=== PATIENT | female | born 1975 | race Caucasian/White ===

== ENCOUNTER → 2016-12-14 | Outpatient (CLI) | payer OTHER ==
--- NOTE | 2016-12-14 12:28 | REP ---
BILATERAL MAMMOGRAM: Bilateral mammography performed in the MLO and CC projections. There is a family history of breast cancer in paternal grandmother. Breast parenchyma is dense bilaterally limiting the sensitivity of the mammogram. Questionable spiculated nodule is seen in the right breast only on the CC view approximately 6 mm in diameter. This could be artifactual. I see no other evidence of mass or clustered microcalcifications. IMPRESSION: ACR 0 incomplete. Questionable small spiculated nodule medially on the right CC view not seen on the MLO view. Recommend spot compression view right breast in the CC projection, as well as right ML view. Other views and ultrasound may also be necessary. BI-RADS/ACR category 0 mammogram, incomplete. Additional imaging and/or prior images are needed before a final assessment can be assigned. This mammogram was interpreted with the aid of an FDA-approved computer-aided detection system. The patient states she/he had a clinical breast exam in 11/2016. The patient letter being requested is M0.
== END ==
LOC: M WHC 11:17
PROVIDERS: ATTEND Nurse Practitioner Women's Health
DX: Z12.31 Encounter for screening mammogram for malignant neoplasm of breast (principal); R92.8 Other abnormal and inconclusive findings on diagnostic imaging of breast

== ENCOUNTER → 2016-12-14 | Outpatient (REF) | payer OTHER | LOC: M SFHCWAGY 11:39 | PROVIDERS: ATTEND Nurse Practitioner Women's Health | DX: Z12.4 Encounter for screening for malignant neoplasm of cervix (principal) ==

== ENCOUNTER → 2016-12-17 | Outpatient (CLI) | payer OTHER ==
--- NOTE | 2016-12-18 04:43 | REP ---
Clinical: Pelvic pain. Technique: Transabdominal pelvic ultrasound followed by transvaginal examination for better evaluation of the endometrium and adnexa. Findings: Bladder is unremarkable and measures 9.1 x 5.3 x 4.5 cm . Heterogeneous anteverted uterus measures 9.7 x 4.2 x 5.2 cm. The endometrial complex measures 9.1 mm thickness. No discrete uterine or endometrial abnormalities are appreciated. Bilateral ovaries are normal in appearance. Right ovary measures 4.2 x 1.8 x 3.0 cm with 2.1 cm cyst. Left ovary measures 3.0 x 1.2 x 1.8 cm. No pelvic fluid or adnexal mass lesion . Impression: 1. Mildly enlarged heterogeneous uterus without discrete abnormality identified. 2. 2.1 cm right ovarian cyst likely physiologic. Signed by Sagar Burks MD 12/18/2016 04:35 A
== END ==
LOC: M WHC 10:03
PROVIDERS: ATTEND Nurse Practitioner Women's Health
DX: R10.2 Pelvic and perineal pain (principal); N85.2 Hypertrophy of uterus; N83.201 Unspecified ovarian cyst, right side

== ENCOUNTER → 2016-12-18 | Outpatient (CLI) | payer OTHER ==
--- NOTE | 2016-12-18 16:45 | REP ---
Right breast ultrasound: 12/18/2016. Clinical history: Nodular tissue asymmetry on the right mammogram, CC view only, inner half of that breast. Comparison: Diagnostic right mammogram today and digital screening mammogram 12/14/2016, 12/01/2015. Findings: Sonographic evaluation of the right breast shows heterogeneous dense echogenic fibrocystic tissue within a band. There are too small cystic areas within that band. One is about 3 cm from the nipple measuring 6.5 x 3.7 mm. The other at the 1-o'clock position is about 7.4 mm in greatest diameter. No discrete solid mass, architectural distortion or dilated duct. Impression: 1. Dense heterogeneous fibrocystic band tissue inner half of the right breast with two cysts within, one at 7.4 mm, the other 6.5 mm in greatest diameter within the inner half of the breast between 1-o'clock and 3-o'clock. Please see mammogram report this date for final assessment and recommendation. BIRADS/ACR category 2, benign. Signed by eRyes Villanueva MD 12/18/2016 07:09 P
--- NOTE | 2016-12-18 16:47 | REP ---
DIAGNOSTIC DIGITAL RIGHT MAMMOGRAM: 12/18/2016. Clinical history: Nodular tissue asymmetry on a screening mammogram, CC view only, right breast inner half. Spot magnified CC, MLO and true ML images of the right breast with attention in the inner half showed that the nodular area of tissue asymmetry compresses to a much less notable appearance on the CC view and is not visible on the spot magnified MLO or ML view. The breast ultrasound in this region show heterogeneous dense echogenic band of fibrocystic tissue and there were two cystic areas within it one 7.4 mm the other 6.5 mm. Impression: BIRADS ACR category 2, benign. Benign findings. No evidence of malignancy. Area in question compresses to normal-appearing parenchyma and two small cysts are seen in the dense heterogeneous breast parenchyma inner half of the right breast by ultrasound. Recommend followup mammography 1 year. This mammogram was interpreted with the aid of an FDA-approved computer-aided detection system. The patient states she/he has not had a clinical breast exam 11/2016. The patient letter being requested is M2. (Dense). BI-RADS/ACR category 2 mammogram. Benign finding(s). Routine annual screening mammography (for women over age 40). Signed by Reyes Villanueva MD 12/18/2016 07:10 P
== END ==
LOC: M RAD 14:29
PROVIDERS: ATTEND Nurse Practitioner Women's Health
DX: R91.1 Solitary pulmonary nodule (principal)

== ENCOUNTER → 2018-03-06 | Outpatient (CLI) | payer OTHER | LOC: M WHC 13:43 | DX: R92.0 Mammographic microcalcification found on diagnostic imaging of breast (principal); R92.2 Inconclusive mammogram; Z80.3 Family history of malignant neoplasm of breast | CPT/HCPCS: 77067 ==

== ENCOUNTER → 2018-03-10 | Outpatient (CLI) | payer OTHER | LOC: M RAD 06:38 | DX: R92.0 Mammographic microcalcification found on diagnostic imaging of breast (principal) | CPT/HCPCS: 77065 ==

== ENCOUNTER → 2018-04-14 | Outpatient (CLI) | payer OTHER | LOC: M WHC 09:44 | DX: Z85.3 Personal history of malignant neoplasm of breast (principal); Z15.09 Genetic susceptibility to other malignant neoplasm; Z15.01 Genetic susceptibility to malignant neoplasm of breast | CPT/HCPCS: 76830 ==

== ENCOUNTER → 2018-04-14 | Outpatient (REF) | payer OTHER ==
[2018-04-15 10:09] LABS: CA 125 23.5 U/ML (<30.2)
== END ==
LOC: M SFHCWAGY 10:17
DX: Z85.3 Personal history of malignant neoplasm of breast (principal); Z15.09 Genetic susceptibility to other malignant neoplasm; Z15.01 Genetic susceptibility to malignant neoplasm of breast

== ENCOUNTER → 2018-05-12 | Outpatient (CLI) | payer OTHER ==
[2018-05-12 10:04] LABS: HEMATOCRIT 38.8 % (36.0-47.0); HEMOGLOBIN 13.1 g/dl (12.0-15.5); MEAN CORPUSCULAR HEMOGLOBIN 28.9 pg (27.0-33.0); MEAN CORPUSCULAR HGB CONC 33.8 g/dl (32.0-36.5); MEAN CORPUSCULAR VOLUME 85.5 fl (80.0-96.0); PLATELET COUNT, AUTOMATED 150 10^3/uL (150-450); RED BLOOD COUNT 4.54 10^6/uL (4.00-5.40); WHITE BLOOD COUNT 17.3 10^3/uL (4.0-10.0)
[2018-05-12 10:29] LABS: ALBUMIN 3.4 GM/DL (3.2-5.2); ALT/SGPT 20 U/L (12-78); BILIRUBIN,TOTAL 0.2 MG/DL (0.2-1.0); BLOOD UREA NITROGEN 14 MG/DL (7-18); CALCIUM LEVEL 8.1 MG/DL (8.5-10.1); CARBON DIOXIDE LEVEL 29 MEQ/L (21-32); CHLORIDE LEVEL 108 MEQ/L (98-107); CREATININE FOR GFR 0.85 MG/DL (0.55-1.30); GLOMERULAR FILTRATION RATE > 60.0 (>58); GLUCOSE, FASTING 97 MG/DL (70-100); POTASSIUM SERUM 4.2 MEQ/L (3.5-5.1); SODIUM LEVEL 145 MEQ/L (136-145); TOTAL PROTEIN 6.3 GM/DL (6.4-8.2)
[2018-05-12 10:38] LABS: ATYPICAL LYMPH 5 % (0-5); BASOPHILS 1 % (0-4); LYMPHOCYTES 7 % (16-52); METAMYELOCYTES 2 % (0-0); MONOCYTES 9 % (0-8); NEUTROPHILS 67 % (35-75)
[2018-05-12 10:39] LABS: PLATELET ESTIMATE NORMAL (NORMAL)
[2018-05-12 10:40] LABS: ANISOCYTOSIS 1+
== END ==
LOC: M LAB 09:36
PROVIDERS: ATTEND Nurse Practitioner
DX: C50.411 Malignant neoplasm of upper-outer quadrant of right female breast (principal)

== ENCOUNTER → 2018-05-27 | Outpatient (CLI) | payer OTHER ==
[2018-05-27 12:28] LABS: HEMATOCRIT 34.5 % (36.0-47.0); HEMOGLOBIN 11.7 g/dl (12.0-15.5); MEAN CORPUSCULAR HGB CONC 33.9 g/dl (32.0-36.5); MEAN CORPUSCULAR VOLUME 85.6 fl (80.0-96.0); PLATELET COUNT, AUTOMATED 169 10^3/uL (150-450); RED BLOOD COUNT 4.03 10^6/uL (4.00-5.40); WHITE BLOOD COUNT 18.8 10^3/uL (4.0-10.0)
[2018-05-27 13:03] LABS: ALBUMIN 3.7 GM/DL (3.2-5.2); ALT/SGPT 18 U/L (12-78); BILIRUBIN,TOTAL 0.5 MG/DL (0.2-1.0); BLOOD UREA NITROGEN 18 MG/DL (7-18); CALCIUM LEVEL 8.9 MG/DL (8.5-10.1); CARBON DIOXIDE LEVEL 31 MEQ/L (21-32); CHLORIDE LEVEL 105 MEQ/L (98-107); CREATININE FOR GFR 0.73 MG/DL (0.55-1.30); GLOMERULAR FILTRATION RATE > 60.0 (>58); GLUCOSE, FASTING 88 MG/DL (70-100); POTASSIUM SERUM 3.7 MEQ/L (3.5-5.1); SODIUM LEVEL 142 MEQ/L (136-145); TOTAL PROTEIN 6.8 GM/DL (6.4-8.2)
[2018-05-27 13:38] LABS: ATYPICAL LYMPH 1 % (0-5); LYMPHOCYTES 9 % (16-52); METAMYELOCYTES 9 % (0-0); MONOCYTES 1 % (0-8); MYELOCYTES 2 % (0-0); NEUTROPHILS 57 % (35-75)
[2018-05-27 13:39] LABS: ANISOCYTOSIS 1+; OVALOCYTES 1+; PLATELET ESTIMATE NORMAL (NORMAL); POIKILOCYTOSIS 1+; POLYCHROMASIA 1+
== END ==
LOC: M LAB 12:06
PROVIDERS: ATTEND Nurse Practitioner
DX: C50.411 Malignant neoplasm of upper-outer quadrant of right female breast (principal)

== ENCOUNTER → 2018-06-09 | Outpatient (CLI) | payer OTHER ==
[2018-06-09 11:55] LABS: HEMATOCRIT 32.8 % (36.0-47.0); HEMOGLOBIN 10.9 g/dl (12.0-15.5); MEAN CORPUSCULAR HEMOGLOBIN 28.9 pg (27.0-33.0); MEAN CORPUSCULAR HGB CONC 33.2 g/dl (32.0-36.5); PLATELET COUNT, AUTOMATED 162 10^3/uL (150-450); RED BLOOD COUNT 3.77 10^6/uL (4.00-5.40); WHITE BLOOD COUNT 10.5 10^3/uL (4.0-10.0)
[2018-06-09 12:17] LABS: ATYPICAL LYMPH 1 % (0-5); BASOPHILS 1 % (0-4); LYMPHOCYTES 8 % (16-52); METAMYELOCYTES 6 % (0-0); MONOCYTES 9 % (0-8); MYELOCYTES 4 % (0-0); NEUTROPHILS 69 % (35-75); PLATELET ESTIMATE NORMAL (NORMAL)
[2018-06-09 12:18] LABS: ANISOCYTOSIS 1+; POLYCHROMASIA 1+
[2018-06-09 12:24] LABS: ALBUMIN 3.6 GM/DL (3.2-5.2); ALT/SGPT 19 U/L (12-78); BILIRUBIN,TOTAL 0.2 MG/DL (0.2-1.0); BLOOD UREA NITROGEN 12 MG/DL (7-18); CALCIUM LEVEL 8.6 MG/DL (8.5-10.1); CARBON DIOXIDE LEVEL 30 MEQ/L (21-32); CHLORIDE LEVEL 107 MEQ/L (98-107); CREATININE FOR GFR 0.71 MG/DL (0.55-1.30); GLOMERULAR FILTRATION RATE > 60.0 (>58); GLUCOSE, FASTING 86 MG/DL (70-100); SODIUM LEVEL 140 MEQ/L (136-145); TOTAL PROTEIN 6.4 GM/DL (6.4-8.2)
== END ==
LOC: M LAB 11:24
PROVIDERS: ATTEND Nurse Practitioner
DX: C50.411 Malignant neoplasm of upper-outer quadrant of right female breast (principal)

== ENCOUNTER → 2018-06-26 | Outpatient (CLI) | payer OTHER ==
[2018-06-26 15:12] LABS: HEMATOCRIT 31.6 % (36.0-47.0); HEMOGLOBIN 10.7 g/dl (12.0-15.5); MEAN CORPUSCULAR HEMOGLOBIN 29.7 pg (27.0-33.0); MEAN CORPUSCULAR HGB CONC 33.9 g/dl (32.0-36.5); MEAN CORPUSCULAR VOLUME 87.8 fl (80.0-96.0); PLATELET COUNT, AUTOMATED 180 10^3/uL (150-450); WHITE BLOOD COUNT 7.3 10^3/uL (4.0-10.0)
[2018-06-26 15:36] LABS: ALBUMIN 3.8 GM/DL (3.2-5.2); ALT/SGPT 20 U/L (12-78); BILIRUBIN,TOTAL 0.4 MG/DL (0.2-1.0); BLOOD UREA NITROGEN 17 MG/DL (7-18); CALCIUM LEVEL 8.7 MG/DL (8.5-10.1); CARBON DIOXIDE LEVEL 30 MEQ/L (21-32); CHLORIDE LEVEL 104 MEQ/L (98-107); GLOMERULAR FILTRATION RATE > 60.0 (>58); GLUCOSE, FASTING 94 MG/DL (70-100); POTASSIUM SERUM 4.2 MEQ/L (3.5-5.1); SODIUM LEVEL 138 MEQ/L (136-145); TOTAL PROTEIN 6.8 GM/DL (6.4-8.2)
[2018-06-26 15:57] LABS: BASOPHILS 1 % (0-4); EOSINOPHILS 1 % (0-5); LYMPHOCYTES 7 % (16-52); METAMYELOCYTES 6 % (0-0); MONOCYTES 6 % (0-8); MYELOCYTES 9 % (0-0); NEUTROPHILS 61 % (35-75)
[2018-06-26 16:02] LABS: PLATELET ESTIMATE NORMAL (NORMAL)
== END ==
LOC: M LAB 14:35
PROVIDERS: ATTEND Nurse Practitioner
DX: C50.411 Malignant neoplasm of upper-outer quadrant of right female breast (principal)

== ENCOUNTER → 2018-07-11 | Outpatient (CLI) | payer OTHER ==
[2018-07-11 12:58] LABS: HEMATOCRIT 35.4 % (36.0-47.0); HEMOGLOBIN 11.8 g/dl (12.0-15.5); MEAN CORPUSCULAR HEMOGLOBIN 30.5 pg (27.0-33.0); MEAN CORPUSCULAR HGB CONC 33.3 g/dl (32.0-36.5); MEAN CORPUSCULAR VOLUME 91.5 fl (80.0-96.0); PLATELET COUNT, AUTOMATED 149 10^3/uL (150-450); RED BLOOD COUNT 3.87 10^6/uL (4.00-5.40); WHITE BLOOD COUNT 9.1 10^3/uL (4.0-10.0)
[2018-07-11 13:16] LABS: ALBUMIN 3.8 GM/DL (3.2-5.2); ALT/SGPT 43 U/L (12-78); BILIRUBIN,TOTAL 0.5 MG/DL (0.2-1.0); BLOOD UREA NITROGEN 17 MG/DL (7-18); CALCIUM LEVEL 8.5 MG/DL (8.5-10.1); CARBON DIOXIDE LEVEL 29 MEQ/L (21-32); CHLORIDE LEVEL 106 MEQ/L (98-107); CREATININE FOR GFR 0.72 MG/DL (0.55-1.30); GLOMERULAR FILTRATION RATE > 60.0 (>58); GLUCOSE, FASTING 79 MG/DL (70-100); POTASSIUM SERUM 4.2 MEQ/L (3.5-5.1); SODIUM LEVEL 141 MEQ/L (136-145); TOTAL PROTEIN 6.7 GM/DL (6.4-8.2)
[2018-07-11 13:37] LABS: EOSINOPHILS 2 % (0-5); LYMPHOCYTES 7 % (16-52); MONOCYTES 5 % (0-8); NEUTROPHILS 86 % (35-75)
[2018-07-11 13:38] LABS: PLATELET ESTIMATE NORMAL (NORMAL)
== END ==
LOC: M LAB 12:09
PROVIDERS: ATTEND Nurse Practitioner
DX: C50.411 Malignant neoplasm of upper-outer quadrant of right female breast (principal)

== ENCOUNTER → 2018-07-24 | Outpatient (CLI) | payer OTHER ==
[2018-07-24 11:26] LABS: HEMATOCRIT 34.9 % (36.0-47.0); HEMOGLOBIN 11.1 g/dl (12.0-15.5); MEAN CORPUSCULAR HGB CONC 31.8 g/dl (32.0-36.5); MEAN CORPUSCULAR VOLUME 94.3 fl (80.0-96.0); PLATELET COUNT, AUTOMATED 166 10^3/uL (150-450); WHITE BLOOD COUNT 16.2 10^3/uL (4.0-10.0)
[2018-07-24 11:49] LABS: BASOPHILS 2 % (0-4); EOSINOPHILS 2 % (0-5); LYMPHOCYTES 7 % (16-52); MONOCYTES 2 % (0-8); NEUTROPHILS 87 % (35-75); PLATELET ESTIMATE NORMAL (NORMAL)
[2018-07-24 11:56] LABS: ALBUMIN 3.7 GM/DL (3.2-5.2); ALT/SGPT 89 U/L (12-78); BILIRUBIN,TOTAL 0.3 MG/DL (0.2-1.0); BLOOD UREA NITROGEN 21 MG/DL (7-18); CALCIUM LEVEL 8.4 MG/DL (8.5-10.1); CARBON DIOXIDE LEVEL 30 MEQ/L (21-32); CHLORIDE LEVEL 106 MEQ/L (98-107); CREATININE FOR GFR 0.74 MG/DL (0.55-1.30); GLOMERULAR FILTRATION RATE > 60.0 (>58); GLUCOSE, FASTING 74 MG/DL (70-100); POTASSIUM SERUM 4.3 MEQ/L (3.5-5.1); SODIUM LEVEL 142 MEQ/L (136-145); TOTAL PROTEIN 6.7 GM/DL (6.4-8.2)
== END ==
LOC: M LAB 10:47
PROVIDERS: ATTEND Internal Medicine Hematology & Oncology
DX: C50.411 Malignant neoplasm of upper-outer quadrant of right female breast (principal)

== ENCOUNTER → 2019-03-10 | Outpatient (REF) | payer OTHER ==
[2019-03-12 14:10] LABS: HPV HYBRID CAPTURE II Negative (Negative)
== END ==
LOC: M SFHCWAGY 14:01
PROVIDERS: ATTEND Nurse Practitioner Women's Health
DX: Z12.4 Encounter for screening for malignant neoplasm of cervix (principal)

== ENCOUNTER 2020-06-17 09:32 | Emergency (ER) | payer OTHER ==
[~2020-06-17] VITALS: Ht 157.5 cm; Wt 74.8 kg
[2020-06-17 09:33] VITALS: BP 128/73
--- OUTSIDE RECORDS SUMMARY | 2020-06-17 09:40 | CCD ---
Author Author [facility] Organization [facility] Address Unknown Phone Unavailable Care Team Providers Care Transplanter Name Role Phone ChikisElizabeth pachecodith Unavailable PROBLEMS Type Condition ICD9-CM Code CWZ30-QT Code Onset Dates Condition S tatus SNOMED Code Notes Problem Unspecified hypothyroidism 244.9 Active 57859 008 Problem Depressive disorder, not elsewhere classified 311 Active 36372236 Problem Peeling skin R23.4 Active 144213358 Problem Constipation, unspecified constipation type K59.00 Active 89948542 Problem Bloating R14.0 Active 650176129 Problem Vitamin D deficiency disease E55.9 Active 347 76584 Problem Numerous skin moles D22.9 Active 762528195 Problem Yeast vaginitis B37.3 Active 78702457 Problem Periodic heart flutter I49.8 Active 959589866 Problem Hypothyroidism, unspecified E03.9 Active 4093 0008 Problem Obesity E66.9 Active 059860536 Problem Major depressive disorder, single episode, unspecified F32.9 Active 23156308 Problem Malignant neoplasm of centra l portion of right female breast, unspecified estrogen receptor status C50.111 Active 926485751 ALLERGIES Allergen (clinical drug ingredient) Drug/Non Drug Allergy do cumented on EMR Reaction Allergy Type Onset Date Status Sulfacet-R n and v Drug Allergy Active Steri-Strip([facility] Code:[address]-56) blisters Drug Allerg y Active ENCOUNTERS from 1975 to 2020-05-03 Encounter Location Date Provider Diagnosis [address] [address] Apr, Monica Diop Hypothyroidism, unspecified E03.9 ; Encounter for screening for lipoid disorders Z13.220 ; Vitamin D deficiency disease E55.9 and Elevated blood pressure reading R03.0 IMMUNIZATIONS Vaccine Route Administration Date Status Tdap IM Intramuscular Jan 10, 2015 Administered SOCIAL HISTORY Tobacco Use: Social History Observation Description Date Details (start date - stop date) Never Smoker Sex Assigned At : Social History Observation Description Sex Assigned At Unknown Alcohol Screen Question Answer Notes Did you have a drink containing alcohol in the past year? No Points 0 Interpretation Negative Tobacco Use/Smoking Question Answer Notes Are you a never smoker REASON FOR REFERRAL No Information VITAL SIGNS No information MEDICATIONS Medication SIG (Take, Route, Frequency, Duration) Notes Start Da te End Date Status Lexapro 10 MG 1 tablet Orally Once a day for 90 days Not-Taking Synthroid 75 MCG 1 tablet on an empty stomach in the morning Orally Once a day for 90 days Aug, Active Vitamin D3 75817 UNIT 1 tablet Orally Once a week for 90 days Jul, Active PROCEDURES No Information RESULTS No Results REASON FOR VISIT Med Refill MEDICAL (GENERAL) HISTORY Type Description Date Medical History Hypothyroidism Medical History Anxiety Surgical History C-secton x 3 Surgical History Left knee ACL reconstruction Surgical History Left knee arthroscopy x 2 Surgical History Diag Lap 07/30 Surgical History Colonoscopy-normal 12/30 Surgical History Left IHR as baby Surgical History left knee scope 10/10/17 Surgical History Breast Biopsy - right 2017 Surgical History Port surgery (port placement ) - done in [place]. Taking out Sep 22 2018 05/01/2018 Surgical History double mastectomy 09/22/18 Hospitalization History C -section Hospitalization History ACL reconstruction Goals Section No Information Health Concerns No Information MEDICAL EQUIPMENT No Information MENTAL STATUS No Information FUNCTIONAL STATUS No Information ASSESSMENTS Encounter Date Diagnosis Assessment Notes Treatment Notes Treatm ent Clinical Notes Apr, Hypothyroidism, unspecified (ICD-10 - E03.9) Apr, Encounter for screening for lipoid disorders (IC D-10 - Z13.220) Apr, Vitamin D deficiency disease (ICD-10 - E55.9) Apr, Elevated blood pressure reading (ICD-10 - R03.0) PLAN OF TREATMENT Medication Medication Name Sig Start Date Stop Date Synthroid 75 MCG 1 tablet on an empty stomach in the morning Orally Once a day for 90 days Aug, Vitamin D3 95083 UNIT 1 tablet Orally Once a week for 90 days Jul, Treatment Notes Test Name Order Date CMP 2020-05-03 TSH 2020-05-03 MAGNESIUM 2020-05-03 VITAMIN D 25OH 2020-05-03 LIPID PROFILE 2020-05-03 FREE T4 2020-05-03 CBC W/DIFF 2020-05-03 Next Appt Details Provider Name:Monica Diop, 07:20:00 AM, [address] [place] [address], [phone], Insurance Providers Payer Name Payer Address Payer Phone Insured Name Patient Relati onship to Insured Coverage Start Date Coverage End Date [facility] [address] [address] [facility] [id number] [phone] Stacy Mcfadden self
--- OUTSIDE RECORDS SUMMARY | 2020-06-17 09:40 | CCD ---
Author Author [facility] Organization [facility] Address Unknown Phone Unavailable Care Team Providers Care Cable Television Line Technician Name Role Phone Cal Mak Unavailable PROBLEMS Type Condition ICD9-CM Code QQV70-RW Code Onset Dates Condition S tatus SNOMED Code Notes Problem Unspecified hypothyroidism 244.9 Active 83779 008 Problem Depressive disorder, not elsewhere classified 311 Active 66746790 Problem Peeling skin R23.4 Active 045792047 Problem Constipation, unspecified constipation type K59.00 Active 21073666 Problem Bloating R14.0 Active 232056460 Problem Vitamin D deficiency disease E55.9 Active 347 06748 Problem Numerous skin moles D22.9 Active 599764716 Problem Yeast vaginitis B37.3 Active 14414886 Problem Periodic heart flutter I49.8 Active 853468875 Problem Hypothyroidism, unspecified E03.9 Active 4093 0008 Problem Obesity E66.9 Active 910009161 Problem Major depressive disorder, single episode, unspecified F32.9 Active 45504267 Problem Malignant neoplasm of centra l portion of right female breast, unspecified estrogen receptor status C50.111 Active 538080247 ALLERGIES Allergen (clinical drug ingredient) Drug/Non Drug Allergy do cumented on EMR Reaction Allergy Type Onset Date Status Sulfacet-R n and v Drug Allergy Active Steri-Strip([facility] Code:[address]-34) blisters Drug Allerg y Active ENCOUNTERS from 1975 to 2020-05-31 Encounter Location Date Provider Diagnosis [address] [address] May, Mak Mccall IMMUNIZATIONS Vaccine Route Administration Date Status Tdap [...] for 90 days Aug, Active Vitamin D3 60530 UNIT 1 tablet Orally Once a week for 90 days Jul, Active PROCEDURES No Information RESULTS No Results REASON FOR VISIT Lab Results MEDICAL (GENERAL) HISTORY Type Description Date Medical [...] surgery (port placement ) - done in [place]. Taking out Sep 22 2018 05/01/2018 Surgical History double mastectomy 09/22/18 Hospitalization History C -section Hospitalization History ACL reconstruction Goals Section No Information Health Concerns No Information MEDICAL EQUIPMENT No Information MENTAL STATUS No Information FUNCTIONAL STATUS No Information ASSESSMENTS No Information PLAN OF TREATMENT Medication Medication Name Sig Start Date Stop Date Synthroid 75 MCG 1 tablet on an empty stomach in the morning Orally Once a day for 90 days Aug, Vitamin D3 96307 UNIT 1 tablet Orally Once a week for 90 days Jul, Next Appt Details Provider Name:Monica Diop, 07:20:00 AM, [address] [place] [address], [phone], Insurance Providers Payer Name Payer Address Payer Phone Insured Name Patient Relati onship to Insured Coverage Start Date Coverage End Date [facility] [address] [address] [facility] [phone] Stacy Mcfadden
--- OUTSIDE RECORDS SUMMARY | 2020-06-17 09:41 | CCD ---
Author Author [facility] Address Unknown Phone Unavailable Care Team Providers Care Chaser Apprentice Name Role Phone Yael RUBIO MD Unavailable Unavailable Yael RUBIO MD Unavailable Unavailable Yael RUBIO MD Unavailable Unavailable Yael RUBIO MD Unavailable Unavailable Yael RUBIO MD Unavailable Unavailable Yael RUBIO MD Unavailable Unavailable Yael RUBIO MD Unavailable Unavailable Yael RUBIO MD Unavailable Unavailable Yael RUBIO MD Unavailable Unavailable Yael RUBIO MD Unavailable Unavailable Yael RUBIO MD Unavailable Unavailable Yael RUBIO MD Unavailable Unavailable RUBIOYael MD Unavailable Unavailable RUBIOYael MD Unavailable Unavailable RUBIOYael MD Unavailable Unavailable RUBIOYael MD Unavailable Unavailable RUBIOYael MD Unavailable Unavailable RUBIOYael MD Unavailable Unavailable RUBIOYael MD Unavailable Unavailable RUBIOYael MD Unavailable Unavailable RUBIOYael MD Unavailable Unavailable RUBIOYael MD Unavailable Unavailable RUBIOYael MD Unavailable Unavailable RUBIOYael MD Unavailable Unavailable RUBIOYael MD Unavailable Unavailable RUBIOYael MD Unavailable Unavailable RUBIOYael MD Unavailable Unavailable RUBIOYael MD Unavailable Unavailable RUBIOYael MD Unavailable Unavailable RUBIOYael MD Unavailable Unavailable RUBIOYael MD Unavailable Unavailable RUBIOYael PAGAN MD Unavailable Unavailable RUBIOYael PAGAN MD Unavailable Unavailable Yael RUBIO MD Unavailable Unavailable Yael RUBIO MD Unavailable Unavailable Yael RUBIO MD Unavailable Unavailable Yael RUBIO MD Unavailable Unavailable Yael RUBIO MD Unavailable Unavailable Yael RUBIO MD Unavailable Unavailable Yael RUBIO MD Unavailable Unavailable Yael RUBIO MD Unavailable Unavailable Yael RUBIO MD Unavailable Unavailable Yael RUBIO MD Unavailable Unavailable Yael RUBIO MD Unavailable Unavailable Yael RUBIO MD Unavailable Unavailable Yael RUBIO MD Unavailable Unavailable Yael RUBIO MD Unavailable Unavailable Yael RUBIO MD Unavailable Unavailable Yael RUBIO MD Unavailable Unavailable Yael RUBIO MD Unavailable Unavailable Yael RUBIO MD Unavailable Unavailable Yael RUBIO MD Unavailable Unavailable Yael RUBIO MD Unavailable Unavailable Yael RUBIO MD Unavailable Unavailable Yael RUBIO MD Unavailable Unavailable Yael RUBIO MD Unavailable Unavailable Yael RUBIO MD Unavailable Unavailable Yael RUBIO MD Unavailable Unavailable RUBIOYael PAGAN MD Unavailable Unavailable RUBIOYael PAGAN MD Unavailable Unavailable RUBIOYael PAGAN MD Unavailable Unavailable Yael RUBIO MD Unavailable Unavailable Yael RUBIO MD Unavailable Unavailable Yael RUBIO MD Unavailable Unavailable Yael RUBIO MD Unavailable Unavailable Yael RUBIO MD Unavailable Unavailable RUBIOYael MD Unavailable Unavailable Yael RUBIO MD Unavailable Unavailable Yael RUBIO MD Unavailable Unavailable Yael RUBIO MD Unavailable Unavailable Yael RUBIO MD Unavailable Unavailable Yael RUBIO MD Unavailable Unavailable Yael RUBIO MD Unavailable Unavailable Yael RUBIO MD Unavailable Unavailable Yael RUBIO MD Unavailable Unavailable Yael RUBIO MD Unavailable Unavailable Yael RUBIO MD Unavailable Unavailable Yael RUBIO MD Unavailable Unavailable Yael RUBIO MD Unavailable Unavailable Yael RUBIO MD Unavailable Unavailable Yael RUBIO MD Unavailable Unavailable Yael RUBIO MD Unavailable Unavailable Yael RUBIO MD Unavailable Unavailable Yael RUBIO MD Unavailable Unavailable Yael RUBIO MD Unavailable Unavailable Yael RUBIO MD Unavailable Unavailable Yael RUBIO MD Unavailable Unavailable Yael RUBIO MD Unavailable Unavailable Yael RUBIO MD Unavailable Unavailable Yael RUBIO MD Unavailable Unavailable Yael RUBIO MD Unavailable Unavailable Yael RUBIO MD Unavailable Unavailable Yael RUBIO MD Unavailable Unavailable Yael RUBIO MD Unavailable Unavailable Yael RUBIO MD Unavailable Unavailable Yael RUBIO MD Unavailable Unavailable Yael RUBIO MD Unavailable Unavailable Yael RUBIO MD Unavailable Unavailable Yael RUBIO MD Unavailable Unavailable Pretty William MD Unavailable Unavailable Pretty William MD Unavailable Unavailable Pretty William MD Unavailable Unavailable Pretty William MD Unavailable Unavailable Pretty William MD Unavailable Unavailable Pretty William MD Unavailable Unavailable Pretty William MD Unavailable Unavailable Pretty William MD Unavailable Unavailable Pretty William MD Unavailable Unavailable Pretty William MD Unavailable Unavailable Pretty William MD Unavailable Unavailable Pretty William MD Unavailable Unavailable Pretty William MD Unavailable Unavailable Pretty William MD Unavailable Unavailable Pretty William MD Unavailable Unavailable Pretty William MD Unavailable Unavailable Pretty William MD Unavailable Unavailable Pretty William MD Unavailable Unavailable Pretty William MD Unavailable Unavailable Pretty William MD Unavailable Unavailable Pretty William MD Unavailable Unavailable Slezka Vojtech Unavailable Unavailable Slezka Voyaeltech Unavailable Unavailable Slezka Vojtech Unavailable Unavailable SlezkaBryantech Unavailable Unavailable SlezkaJamesjtech Unavailable Unavailable SlezkaJamesjtech Unavailable Unavailable SlezkaJamesjtech Unavailable Unavailable SlezkaJamesjtech Unavailable Unavailable Slezka Vojtech Unavailable Unavailable SlezkaJamesjtech Unavailable Unavailable SlezkaJamesjtech Unavailable Unavailable SlezkaJamesjtech Unavailable Unavailable SlezkaJamesjtech Unavailable Unavailable Slezka Vojtech Unavailable Unavailable SlezkaJamesjtech Unavailable Unavailable SlezkaJamesjtech Unavailable Unavailable SlezkaJamesjtech Unavailable Unavailable SlezkaJamesjtech Unavailable Unavailable SlerahulkaJamesjtech Unavailable Unavailable SlezkaJamesjtech Unavailable Unavailable SlerahulkaJamesjtech Unavailable Unavailable SlerahulkaJamesjtech Unavailable Unavailable SleJames rochajtech Unavailable Unavailable SlerahulkaBryantech Unavailable Unavailable SlezkaJamesjtech Unavailable Unavailable SlezkaJamesjtech Unavailable Unavailable SlezkaJamesjtech Unavailable Unavailable SlezkaJamesjtech Unavailable Unavailable SlerahulkaJamesjtech Unavailable Unavailable SlezkaJamesjtech Unavailable Unavailable SlerahulkaBryantech Unavailable Unavailable SlezkaJamesjtech Unavailable Unavailable SlezkaJamesjtech Unavailable Unavailable SlezkaJamesjtech Unavailable Unavailable SleBryan rochatech Unavailable Unavailable SlerahulkaBryantech Unavailable Unavailable SleBryan rochatech Unavailable Unavailable RUIZ SR, IRMA CUELLAR MD Unavailable Unavailable URIZ SR, IRMA CUELLAR MD Unavailable Unavailable RUIZ SR, IRMA CUELLAR MD Unavailable Unavailable RUIZ SR, IRMA CUELLAR MD Unavailable Unavailable RUIZ SR, IRMA CUELLAR MD Unavailable Unavailable RUIZ SR, IRMA CUELLAR MD Unavailable Unavailable RUIZ SR, IRMA CUELLAR MD Unavailable Unavailable RUIZ SR, IRMA CUELLAR MD Unavailable Unavailable RUIZ SR, IRMA CUELLAR MD Unavailable Unavailable RUIZ SR, IRMA CUELLAR MD Unavailable Unavailable RUIZ SR, IRMA CUELLAR MD Unavailable Unavailable RUIZ SR, IRMA CUELLAR MD Unavailable Unavailable RUIZ SR, IRMA CUELLAR MD Unavailable Unavailable RUIZ SR, IRMA CUELLAR MD Unavailable Unavailable RUIZ SR, IRMA CUELLAR MD Unavailable Unavailable RUIZ SR, IRMA CUELLAR MD Unavailable Unavailable RUIZ SR, IRMA CUELLAR MD Unavailable Unavailable RUIZ SR, IRMA CUELLAR MD Unavailable Unavailable RUIZ SR, IRMA CUELLAR MD Unavailable Unavailable RUIZ SR, IRMA CUELLAR MD Unavailable Unavailable RUIZ SR, IRMA CUELLAR MD Unavailable Unavailable RIUZ SR, IRMA CUELLAR MD Unavailable Unavailable RUIZ SR, IRMA CUELLAR MD Unavailable Unavailable RUIZ SR, IRMA CUELLAR MD Unavailable Unavailable RUIZ SR, IRMA CUELLAR MD Unavailable Unavailable RUIZ SR, IRMA CUELLAR MD Unavailable Unavailable RUIZ SR, IRMA CUELLAR MD Unavailable Unavailable RUIZ SR, IRMA CUELLAR MD Unavailable Unavailable RUIZ SR, IRMA CUELLAR MD Unavailable Unavailable RUIZ SR, IRMA CUELLAR MD Unavailable Unavailable RUIZ SR, IRMA CUELLAR MD Unavailable Unavailable RUIZ SR, IRMA CUELLAR MD Unavailable Unavailable RUIZ SR, IRMA CUELLAR MD Unavailable Unavailable RUIZ SR, IRMA CUELLAR MD Unavailable Unavailable RUIZ SR, IRMA CUELLAR MD Unavailable Unavailable RUIZ SR, IRMA CUELLAR MD Unavailable Unavailable RUIZ SR, IRMA CUELLAR MD Unavailable Unavailable RUIZ SR, IRMA CUELLAR MD Unavailable Unavailable RUIZ SR, IRMA CUELLAR MD Unavailable Unavailable RUIZ SR, IRMA CUELLAR MD Unavailable Unavailable RUIZ SR, IRMA CUELLAR MD Unavailable Unavailable RUIZ SR, IRMA CUELLAR MD Unavailable Unavailable RUIZ SR, IRMA CUELLAR MD Unavailable Unavailable RUIZ SR, IRMA CUELLAR MD Unavailable Unavailable RUIZ SR, IRMA CUELLAR MD Unavailable Unavailable RUIZ SR, IRMA CUELLAR MD Unavailable Unavailable RUIZ SR, IRMA CUELLAR MD Unavailable Unavailable RUIZ SR, IRMA CUELLAR MD Unavailable Unavailable RUIZ SR, IRMA CUELLAR MD Unavailable Unavailable RUIZ SR, IRMA CUELLAR MD Unavailable Unavailable RUIZ SR, IRMA CUELLAR MD Unavailable Unavailable RUIZ SR, IRMA CUELLAR MD Unavailable Unavailable RUIZ SR, IRMA CUELLAR MD Unavailable Unavailable RUIZ SR, IRMA CUELLAR MD Unavailable Unavailable Volcko, M Asuncion ENGINEERING DRAFTER Unavailable Unavailable Volcko, M Asuncion ENGINEERING DRAFTER Unavailable Unavailable Volcko, M Asuncion ENGINEERING DRAFTER Unavailable Unavailable Volcko, M Asuncion ENGINEERING DRAFTER Unavailable Unavailable Volcko, M Asuncion ENGINEERING DRAFTER Unavailable Unavailable Volcko, M Asuncion ENGINEERING DRAFTER Unavailable Unavailable Volcko, M Asuncion ENGINEERING DRAFTER Unavailable Unavailable Volcko, M Asuncion ENGINEERING DRAFTER Unavailable Unavailable Volcko, M Asuncion ENGINEERING DRAFTER Unavailable Unavailable Volcko, M Asuncion ENGINEERING DRAFTER Unavailable Unavailable Volcko, M Asuncion ENGINEERING DRAFTER Unavailable Unavailable Volcko, M Asuncion ENGINEERING DRAFTER Unavailable Unavailable Volcko, M Asuncion ENGINEERING DRAFTER Unavailable Unavailable Volcko, M Asuncion ENGINEERING DRAFTER Unavailable Unavailable Volcko, M Asuncion ENGINEERING DRAFTER Unavailable Unavailable Volcko, M Asuncion ENGINEERING DRAFTER Unavailable Unavailable Volcko, M Asuncion ENGINEERING DRAFTER Unavailable Unavailable Volcko, M Asuncion ENGINEERING DRAFTER Unavailable Unavailable Volcko, M Asuncion ENGINEERING DRAFTER Unavailable Unavailable Volcko, M Asuncion ENGINEERING DRAFTER Unavailable Unavailable Volcko, M Asuncion ENGINEERING DRAFTER Unavailable Unavailable Volcko, M Asuncion ENGINEERING DRAFTER Unavailable Unavailable Volcko, M Asuncion ENGINEERING DRAFTER Unavailable Unavailable Volcko, M Asuncion ENGINEERING DRAFTER Unavailable Unavailable Volcko, M Asuncion ENGINEERING DRAFTER Unavailable Unavailable Volcko, M Asuncion ENGINEERING DRAFTER Unavailable Unavailable Volcko, M Asuncion ENGINEERING DRAFTER Unavailable Unavailable Volcko, M Asuncion ENGINEERING DRAFTER Unavailable Unavailable Volcko, M Asuncion ENGINEERING DRAFTER Unavailable Unavailable Volcko, M Asuncion ENGINEERING DRAFTER Unavailable Unavailable Volcko, M Asuncion ENGINEERING DRAFTER Unavailable Unavailable Volcko, M Asuncion ENGINEERING DRAFTER Unavailable Unavailable Volcko, M Asuncion ENGINEERING DRAFTER Unavailable Unavailable Volcko, M Asuncion ENGINEERING DRAFTER Unavailable Unavailable Volcko, M Asuncion ENGINEERING DRAFTER Unavailable Unavailable Volcko, M Asuncion ENGINEERING DRAFTER Unavailable Unavailable Volcko, M Asuncion ENGINEERING DRAFTER Unavailable Unavailable DWYER, KARLA PAULA ACCOUNTANT CONTROLLER-C, MSN Unavailable Unavailab le DWYERKARLA QUEZADA PAULA ACCOUNTANT CONTROLLER-C, MSN Unavailable Unavailab le DWYERKARLA PAULA ACCOUNTANT CONTROLLER-C, MSN Unavailable Unavailab le DWYERKARLA QUEZADA PAULA ACCOUNTANT CONTROLLER-C, MSN Unavailable Unavailab le DWYERKARLA QUEZADA PAULA ACCOUNTANT CONTROLLER-C, MSN Unavailable Unavailab le DWYERKARLA QUEZADA PAULA ACCOUNTANT CONTROLLER-C, MSN Unavailable Unavailab le DWYERKARLA QUEZADA PAULA ACCOUNTANT CONTROLLER-C, MSN Unavailable Unavailab le DWYERKARLA PAULA ACCOUNTANT CONTROLLER-C, MSN Unavailable Unavailab le DWYERKARLA PAULA ACCOUNTANT CONTROLLER-C, MSN Unavailable Unavailab le DWYERKARLA PAULA ACCOUNTANT CONTROLLER-C, MSN Unavailable Unavailab le DWYERKARLA PAULA ACCOUNTANT CONTROLLER-C, MSN Unavailable Unavailab le DWYERKARLA PAULA ACCOUNTANT CONTROLLER-C, MSN Unavailable Unavailab le DWYERKARLA PAULA ACCOUNTANT CONTROLLER-C, MSN Unavailable Unavailab le DWYER, KARLA PAULA ACCOUNTANT CONTROLLER-C, MSN Unavailable Unavailab le DWYER, KARLA PAULA ACCOUNTANT CONTROLLER-C, MSN Unavailable Unavailab le DWYER, KARLA PAULA ACCOUNTANT CONTROLLER-C, MSN Unavailable Unavailab le DWYER, KARLA PAULA ACCOUNTANT CONTROLLER-C, MSN Unavailable Unavailab le DWYER, KARLA PAULA ACCOUNTANT CONTROLLER-C, MSN Unavailable Unavailab le DWYER, KARLA PAULA ACCOUNTANT CONTROLLER-C, MSN Unavailable Unavailab le DWYER, KARLA PAULA ACCOUNTANT CONTROLLER-C, MSN Unavailable Unavailab le DWYER, KARLA PAULA ACCOUNTANT CONTROLLER-C, MSN Unavailable Unavailab le DWYER, KARLA PAULA ACCOUNTANT CONTROLLER-C, MSN Unavailable Unavailab le DWYER, KARLA PAULA ACCOUNTANT CONTROLLER-C, MSN Unavailable Unavailab le DWYER, KARLA PAULA ACCOUNTANT CONTROLLER-C, MSN Unavailable Unavailab le DWYER, KARLA PAULA ACCOUNTANT CONTROLLER-C, MSN Unavailable Unavailab le DWYER, KARLA PAULA ACCOUNTANT CONTROLLER-C, MSN Unavailable Unavailab le DWYER, KARLA PAULA ACCOUNTANT CONTROLLER-C, MSN Unavailable Unavailab le DWYER, KARLA PAUAL ACCOUNTANT CONTROLLER-C, MSN Unavailable Unavailab le DWYER, KARLA PAULA ACCOUNTANT CONTROLLER-C, MSN Unavailable Unavailab le DWYER, KARLA PAULA ACCOUNTANT CONTROLLER-C, MSN Unavailable Unavailab le DWYER, KARLA PAULA ACCOUNTANT CONTROLLER-C, MSN Unavailable Unavailab le DWYER, KARLA PAULA ACCOUNTANT CONTROLLER-C, MSN Unavailable Unavailab le DWYER, KARLA PAULA ACCOUNTANT CONTROLLER-C, MSN Unavailable Unavailab le DWYER, KARLA PAULA ACCOUNTANT CONTROLLER-C, MSN Unavailable Unavailab le DWYER, KARLA PAULA ACCOUNTANT CONTROLLER-C, MSN Unavailable Unavailab le DWYER, KARLA PAULA ACCOUNTANT CONTROLLER-C, MSN Unavailable Unavailab le DWYER, KARLA PAULA ACCOUNTANT CONTROLLER-C, MSN Unavailable Unavailab le DWYER, KARLA PAULA ACCOUNTANT CONTROLLER-C, MSN Unavailable Unavailab le DWYER, KARLA PAULA ACCOUNTANT CONTROLLER-C, MSN Unavailable Unavailab le DWYER, KARLA PAULA ACCOUNTANT CONTROLLER-C, MSN Unavailable Unavailab le KARLA DWYER ACCOUNTANT CONTROLLER-C, MSN Unavailable Unavailab lonnie DWYER, KARLA PEOPLESA ACCOUNTANT CONTROLLER-C, MSN Unavailable Unavailab KARLA AdamsA ACCOUNTANT CONTROLLER-C, MSN Unavailable Unavailab le Yael RUBIO MD Unavailable Unavailable Yael RUBIO MD Unavailable Unavailable Yael RUBIO MD Unavailable Unavailable Yael RUBIO MD Unavailable Unavailable Yael RUBIO MD Unavailable Unavailable Yael RUBIO MD Unavailable Unavailable Yael RUBIO MD Unavailable Unavailable Yael RUBIO MD Unavailable Unavailable Yael RUBIO MD Unavailable Unavailable Yael RUBIO MD Unavailable Unavailable Yael RUBIO MD Unavailable Unavailable Yael RUBIO MD Unavailable Unavailable Yael RUBIO MD Unavailable Unavailable Yeal RUBIO MD Unavailable Unavailable Yael RUBIO MD Unavailable Unavailable Yael RUBIO MD Unavailable Unavailable Yael RUBIO MD Unavailable Unavailable Yael RUBIO MD Unavailable Unavailable Yael RUBIO MD Unavailable Unavailable Yael RUBIO MD Unavailable Unavailable Yael RUBIO MD Unavailable Unavailable Yael RUBIO MD Unavailable Unavailable Yael RUBIO MD Unavailable Unavailable Yael RUBIO MD Unavailable Unavailable Yael RUBIO MD Unavailable Unavailable Yael RUBIO MD Unavailable Unavailable Yael RUBIO MD Unavailable Unavailable Yael RUBIO MD Unavailable Unavailable Yael RUBIO MD Unavailable Unavailable Yael RUBIO MD Unavailable Unavailable Yael RUBIO MD Unavailable Unavailable Yael RUBIO MD Unavailable Unavailable Yael RUBIO MD Unavailable Unavailable Yael RUBIO MD Unavailable Unavailable Yael RUBIO MD Unavailable Unavailable Yael RUBIO MD Unavailable Unavailable Yael RUBIO MD Unavailable Unavailable Yael RUBIO MD Unavailable Unavailable Yael RUBIO MD Unavailable Unavailable Yael RUBIO MD Unavailable Unavailable Yael RUBIO MD Unavailable Unavailable Yael RUBIO MD Unavailable Unavailable Yael RUBIO MD Unavailable Unavailable Yael RUBIO MD Unavailable Unavailable Yael RUBIO MD Unavailable Unavailable Yael RUBIO MD Unavailable Unavailable Yael RUBIO MD Unavailable Unavailable Yael RUBIO MD Unavailable Unavailable Yael RUBIO MD Unavailable Unavailable Yael RUBIO MD Unavailable Unavailable Yael RUBIO MD Unavailable Unavailable Yael RUBIO MD Unavailable Unavailable Yael RUBIO MD Unavailable Unavailable Yael RUBIO MD Unavailable Unavailable RUBIOYael PAGAN MD Unavailable Unavailable Yael RUBIO MD Unavailable Unavailable Yael RUBIO MD Unavailable Unavailable aYel RUBIO MD Unavailable Unavailable Yael RUBIO MD Unavailable Unavailable Yael RUBIO MD Unavailable Unavailable Yael RUBIO MD Unavailable Unavailable Yael RUBIO MD Unavailable Unavailable Yael RUBIO MD Unavailable Unavailable Yael RUBIO MD Unavailable Unavailable Yael RUBIO MD Unavailable Unavailable Yael RUBIO MD Unavailable Unavailable Yael RUBIO MD Unavailable Unavailable Yael RUBIO MD Unavailable Unavailable Yael RUBIO MD Unavailable Unavailable Yael RUBIO MD Unavailable Unavailable Yael RUBIO MD Unavailable Unavailable Yael RUBIO MD Unavailable Unavailable Yael RUBIO MD Unavailable Unavailable Yael RUBIO MD Unavailable Unavailable Yael RUBIO MD Unavailable Unavailable Yael RUBIO MD Unavailable Unavailable Yael RUBIO MD Unavailable Unavailable Yael RUBIO MD Unavailable Unavailable Yael RUBIO MD Unavailable Unavailable Yael RUBIO MD Unavailable Unavailable Yael RUBIO MD Unavailable Unavailable Yael RUBIO MD Unavailable Unavailable Yael RUBIO MD Unavailable Unavailable Yael RUBIO MD Unavailable Unavailable Yael RUBIO MD Unavailable Unavailable Yael RUBIO MD Unavailable Unavailable Yael RUBIO MD Unavailable Unavailable Yael RUBIO MD Unavailable Unavailable Yael RUBIO MD Unavailable Unavailable Yael RUBIO MD Unavailable Unavailable Yael RUBIO MD Unavailable Unavailable Yael RUBIO MD Unavailable Unavailable Yael RUBIO MD Unavailable Unavailable Yael RUBIO MD Unavailable Unavailable Yael RUBIO MD Unavailable Unavailable Yael RUBIO MD Unavailable Unavailable Yael RUBIO MD Unavailable Unavailable Yael RUBIO MD Unavailable Unavailable Yael RUBIO MD Unavailable Unavailable Sabrina Matthews ACCOUNTANT CONTROLLER-C Unavailable Unavailabl e Cassie, Reginah W Mary Jo ACCOUNTANT CONTROLLER-C Unavailable Unavailabl e Cassie, Reginaalphonso W Mary Jo ACCOUNTANT CONTROLLER-C Unavailable Unavailabl e Cassie, Reginaalphonso W Mary Jo ACCOUNTANT CONTROLLER-C Unavailable Unavailabl e Cassie, Reginaalphonso W Mary Jo ACCOUNTANT CONTROLLER-C Unavailable Unavailabl e Cassie, Reginaalphonso W Mary Jo ACCOUNTANT CONTROLLER-C Unavailable Unavailabl e Cassie, Reginaalphonso W Mary Jo ACCOUNTANT CONTROLLER-C Unavailable Unavailabl e Cassie, Reginaalphonso W Mary Jo ACCOUNTANT CONTROLLER-C Unavailable Unavailabl e Cassie, Reginaalphonso W Mary Jo ACCOUNTANT CONTROLLER-C Unavailable Unavailabl e Cassie, Regina W Mary Jo ACCOUNTANT CONTROLLER-C Unavailable Unavailabl e Cassie, Reginaalphonso W Mary Jo ACCOUNTANT CONTROLLER-C Unavailable Unavailabl e Cassie, Sabrina W Mary Jo ACCOUNTANT CONTROLLER-C Unavailable Unavailabl e Cassie, Reglainey W Mary Jo ACCOUNTANT CONTROLLER-C Unavailable Unavailabl e Cassie, Reglainey W Mary Jo ACCOUNTANT CONTROLLER-C Unavailable Unavailabl e Cassie, Reglainey W Mary Jo ACCOUNTANT CONTROLLER-C Unavailable Unavailabl e Cassie, Regklaus W Mary Jo ACCOUNTANT CONTROLLER-C Unavailable Unavailabl e Cassie, Regklaus W Mary Jo ACCOUNTANT CONTROLLER-C Unavailable Unavailabl e Cassie, Regklaus W Mary Jo ACCOUNTANT CONTROLLER-C Unavailable Unavailabl e Cassie, Regklaus W Mary Jo ACCOUNTANT CONTROLLER-C Unavailable Unavailabl e Cassie, Regklaus W Mary Jo ACCOUNTANT CONTROLLER-C Unavailable Unavailabl e Cassie, Regina W Mary Jo ACCOUNTANT CONTROLLER-C Unavailable Unavailabl e Cassie, Regina W Mary Jo ACCOUNTANT CONTROLLER-C Unavailable Unavailabl e Cassie, Regina W Mary Jo ACCOUNTANT CONTROLLER-C Unavailable Unavailabl e Cassie, Regina W Mary Jo ACCOUNTANT CONTROLLER-C Unavailable Unavailabl e Cassie, Regina W Mary Jo ACCOUNTANT CONTROLLER-C Unavailable Unavailabl e Cassie, Regina W Mary Jo ACCOUNTANT CONTROLLER-C Unavailable Unavailabl e Cassie, Regina W Mary Jo ACCOUNTANT CONTROLLER-C Unavailable Unavailabl e Cassie, Regina W Mary Jo ACCOUNTANT CONTROLLER-C Unavailable Unavailabl e Cassie, Regklaus Sridhar Mary Jo ACCOUNTANT CONTROLLER-C Unavailable Unavailabl e Cassie, [facility] W Mary Jo ACCOUNTANT CONTROLLER-C Unavailable Unavailabl e Cassie, [facility] W Mary Jo ACCOUNTANT CONTROLLER-C Unavailable Unavailabl e Cassie, [facility] ACCOUNTANT CONTROLLER-C Unavailable Unavailabl e Chikis, A Monica ACCOUNTANT CONTROLLER Unavailable Unavailable Chikis, A Monica ACCOUNTANT CONTROLLER Unavailable Unavailable Chikis, A Monica ACCOUNTANT CONTROLLER Unavailable Unavailable Chikis, A Monica ACCOUNTANT CONTROLLER Unavailable Unavailable Chikis, A Monica ACCOUNTANT CONTROLLER Unavailable Unavailable Chikis, A Monica ACCOUNTANT CONTROLLER Unavailable Unavailable Chikis, A Monica ACCOUNTANT CONTROLLER Unavailable Unavailable Chikis, A Monica ACCOUNTANT CONTROLLER Unavailable Unavailable Chikis, A Monica ACCOUNTANT CONTROLLER Unavailable Unavailable Chikis, A Monica ACCOUNTANT CONTROLLER Unavailable Unavailable Chikis, A Monica ACCOUNTANT CONTROLLER Unavailable Unavailable Chikis, A Monica ACCOUNTANT CONTROLLER Unavailable Unavailable Chikis, A Monica ACCOUNTANT CONTROLLER Unavailable Unavailable Chikis, A Monica ACCOUNTANT CONTROLLER Unavailable Unavailable Chikis, A Monica ACCOUNTANT CONTROLLER Unavailable Unavailable Chikis, A Monica ACCOUNTANT CONTROLLER Unavailable Unavailable Chikis, A Monica ACCOUNTANT CONTROLLER Unavailable Unavailable Chikis, A Monica ACCOUNTANT CONTROLLER Unavailable Unavailable Chikis, A Monica ACCOUNTANT CONTROLLER Unavailable Unavailable Chikis, A Monica ACCOUNTANT CONTROLLER Unavailable Unavailable Chikis, A Monica ACCOUNTANT CONTROLLER Unavailable Unavailable Chikis, A Monica ACCOUNTANT CONTROLLER Unavailable Unavailable Chikis, A Monica ACCOUNTANT CONTROLLER Unavailable Unavailable Chikis, A Monica ACCOUNTANT CONTROLLER Unavailable Unavailable Chikis, A Monica ACCOUNTANT CONTROLLER Unavailable Unavailable Chikis, A Monica ACCOUNTANT CONTROLLER Unavailable Unavailable Chikis, A Monica ACCOUNTANT CONTROLLER Unavailable Unavailable Chikis, A Monica ACCOUNTANT CONTROLLER Unavailable Unavailable Chikis, A Monica ACCOUNTANT CONTROLLER Unavailable Unavailable Chikis, A Monica ACCOUNTANT CONTROLLER Unavailable Unavailable Chikis, A Monica ACCOUNTANT CONTROLLER Unavailable Unavailable Chikis, A Monica ACCOUNTANT CONTROLLER Unavailable Unavailable Chikis, A Monica ACCOUNTANT CONTROLLER Unavailable Unavailable Chikis, A Monica ACCOUNTANT CONTROLLER Unavailable Unavailable Chikis, A Monica ACCOUNTANT CONTROLLER Unavailable Unavailable Chikis, A Monica ACCOUNTANT CONTROLLER Unavailable Unavailable Chikis, A Monica ACCOUNTANT CONTROLLER Unavailable Unavailable Chikis, A Monica ACCOUNTANT CONTROLLER Unavailable Unavailable Chikis, A Monica ACCOUNTANT CONTROLLER Unavailable Unavailable Chikis, A Monica ACCOUNTANT CONTROLLER Unavailable Unavailable Chikis, A Monica ACCOUNTANT CONTROLLER Unavailable Unavailable Chikis, A Monica ACCOUNTANT CONTROLLER Unavailable Unavailable Chikis, A Monica ACCOUNTANT CONTROLLER Unavailable Unavailable Chikis, A Monica ACCOUNTANT CONTROLLER Unavailable Unavailable RUIZ SR, IRMA CUELLAR MD Unavailable Unavailable RUIZ SR, IRMA CUELLAR MD Unavailable Unavailable RUIZ SR, IRMA CUELLAR MD Unavailable Unavailable RUIZ SR, IRMA CUELLAR MD Unavailable Unavailable RUIZ SR, IRMA CUELLAR MD Unavailable Unavailable RUIZ SR, IRMA CUELLAR MD Unavailable Unavailable RUIZ SR, IRMA CUELLAR MD Unavailable Unavailable RUIZ SR, IRMA CUELLAR MD Unavailable Unavailable RUIZ SR, IRMA CUELLAR MD Unavailable Unavailable RUIZ SR, IRMA CUELLAR MD Unavailable Unavailable RUIZ SR, IRMA CUELLAR MD Unavailable Unavailable RUIZ SR, IRMA CUELLAR MD Unavailable Unavailable RUIZ SR, IRMA CUELLAR MD Unavailable Unavailable RUIZ SR, IRMA CUELLAR MD Unavailable Unavailable RUIZ SR, IRMA CUELLAR MD Unavailable Unavailable RUIZ SR, IRMA CUELLAR MD Unavailable Unavailable RUIZ SR, IRMA CUELLAR MD Unavailable Unavailable RUIZ SR, IRMA CUELLAR MD Unavailable Unavailable RUIZ SR, IRMA CUELLAR MD Unavailable Unavailable RUIZ SR, IRMA CUELLAR MD Unavailable Unavailable RUIZ SR, IRMA CUELLAR MD Unavailable Unavailable RUIZ SR, IRMA CUELLAR MD Unavailable Unavailable RUIZ SR, IRMA CUELLAR MD Unavailable Unavailable RUIZ SR, IRMA CUELLAR MD Unavailable Unavailable RUIZ SR, IRMA CUELLAR MD Unavailable Unavailable RUIZ SR, IRMA CUELLAR MD Unavailable Unavailable RUIZ SR, IRMA CUELLAR MD Unavailable Unavailable RUIZ SR, IRMA CUELLAR MD Unavailable Unavailable RUIZ SR, IRMA CUELLAR MD Unavailable Unavailable RUIZ SR, IRMA CUELLAR MD Unavailable Unavailable RUIZ SR, IRMA CUELLAR MD Unavailable Unavailable RUIZ SR, IRMA CUELLAR MD Unavailable Unavailable RUIZ SR, IRMA CUELLAR MD Unavailable Unavailable RUIZ SR, IRMA CUELLAR MD Unavailable Unavailable RUIZ SR, IRMA CUELLAR MD Unavailable Unavailable RUIZ SR, IRMA CUELLAR MD Unavailable Unavailable RUIZ SR, IRMA CUELLAR MD Unavailable Unavailable RUIZ SR, IRMA CUELLAR MD Unavailable Unavailable RUIZ SR, IRMA CUELLAR MD Unavailable Unavailable RUIZ SR, IRMA CUELLAR MD Unavailable Unavailable RUIZ SR, IRMA CUELLAR MD Unavailable Unavailable RUIZ SR, IRMA CUELLAR MD Unavailable Unavailable RUIZ SR, IRMA CUELLAR MD Unavailable Unavailable RUIZ SR, IRMA CUELLAR MD Unavailable Unavailable RUIZ SR, IRMA CUELLAR MD Unavailable Unavailable RUIZ SR, IRMA CUELLAR MD Unavailable Unavailable RUIZ SR, IRMA CUELLAR MD Unavailable Unavailable RUIZ SR, IRMA CUELLAR MD Unavailable Unavailable RUIZ SR, IRMA CUELLAR MD Unavailable Unavailable RUIZ SR, IRMA CUELLAR MD Unavailable Unavailable RUIZ SR, IRMA CUELLAR MD Unavailable Unavailable RUIZ SR, IRMA CUELLAR MD Unavailable Unavailable RUIZ SR, IRMA CUELLAR MD Unavailable Unavailable RUIZ SR, IRMA CUELLAR MD Unavailable Unavailable Yael MCKNIGHT MD Unavailable Unavailable Yael MCKNIGHT MD Unavailable Unavailable Yael MCKNIGHT MD Unavailable Unavailable Yael MCKNIGHT MD Unavailable Unavailable Yael MCKNIGHT MD Unavailable Unavailable Yael MCKNIGHT MD Unavailable Unavailable Yael MCKNIGHT MD Unavailable Unavailable Yael MCKNIGHT MD Unavailable Unavailable Yael MCKNIGHT MD Unavailable Unavailable Yael MCKNIGHT MD Unavailable Unavailable Yael MCKNIGHT MD Unavailable Unavailable KIRYael BAER MD Unavailable Unavailable Yael MCKNIGHT MD Unavailable Unavailable Yael MCKNIGHT MD Unavailable Unavailable Yael MCKNIGHT MD Unavailable Unavailable Yael MCKNIGHT MD Unavailable Unavailable Yael MCKNIGHT MD Unavailable Unavailable Yael MCKNIGHT MD Unavailable Unavailable Yael MCKNIGHT MD Unavailable Unavailable Yael MCKNIGHT MD Unavailable Unavailable Yael MCKNIGHT MD Unavailable Unavailable Yael MCKNIGHT MD Unavailable Unavailable Yael MCKNIGHT MD Unavailable Unavailable Yael MCKNIGHT MD Unavailable Unavailable Yael MCKNIGHT MD Unavailable Unavailable Yael MCKNIGHT MD Unavailable Unavailable Yael MCKNIGHT MD Unavailable Unavailable Yael MCKNIGHT MD Unavailable Unavailable Yael MCKNIGHT MD Unavailable Unavailable Yael MCKNIGHT MD Unavailable Unavailable Yael MCKNIGHT MD Unavailable Unavailable Yael MCKNIGHT MD Unavailable Unavailable Yael MCKNIGHT MD Unavailable Unavailable Yael MCKNIGHT MD Unavailable Unavailable Yael MCKNIGHT MD Unavailable Unavailable Yael MCKNIGHT MD Unavailable Unavailable Yael MCKNIGHT MD Unavailable Unavailable Yael MCKNIGHT MD Unavailable Unavailable Yael MCKNIGHT MD Unavailable Unavailable Yael MCKNIGHT MD Unavailable Unavailable Yael MCKNIGHT MD Unavailable Unavailable Yael MCKNIGHT MD Unavailable Unavailable KIRYael BAER MD Unavailable Unavailable KIRYael BAER MD Unavailable Unavailable KIRYael BAER MD Unavailable Unavailable KIRYael BAER MD Unavailable Unavailable KIRYael BAER MD Unavailable Unavailable KIRYael BAER MD Unavailable Unavailable KIRYael BAER MD Unavailable Unavailable KIRSHYael DUMONT MD Unavailable Unavailable KIRYael BAER MD Unavailable Unavailable KIRSHYael DUMONT MD Unavailable Unavailable KIRSHYael DUMONT MD Unavailable Unavailable KIRSHYael DUMONT MD Unavailable Unavailable KIRSHYael DUMONT MD Unavailable Unavailable KIRSHYael DUMONT MD Unavailable Unavailable KIRSHYael DUMONT MD Unavailable Unavailable KIRSHYael DUMONT MD Unavailable Unavailable KIRSHYael DUMONT MD Unavailable Unavailable KIRSHYael DUMONT MD Unavailable Unavailable KIRSHYael DUMONT MD Unavailable Unavailable KIRSHYael DUMONT MD Unavailable Unavailable KIRSHYael DUMONT MD Unavailable Unavailable KIRSHYael DUMONT MD Unavailable Unavailable KIRYael BAER MD Unavailable Unavailable KIRYael BAER MD Unavailable Unavailable KIRYael BAER MD Unavailable Unavailable KIRYael BAER MD Unavailable Unavailable KIRSHYael DUMONT MD Unavailable Unavailable KIRYael BAER MD Unavailable Unavailable KIRYael BAER MD Unavailable Unavailable KIRYael BAER MD Unavailable Unavailable KIRYael BAER MD Unavailable Unavailable KIRYael BAER MD Unavailable Unavailable KIRYael BAER MD Unavailable Unavailable KIRYael BAER MD Unavailable Unavailable Re-disclosure Warning The records that you are about to access may contain information from federally-assisted alcohol or drug abuse programs. If such information is present, then the following federally mandated warning applies: This information has been disclosed to you from records protected by federal confidentiality rules (42 CFR part 2). The federal rules prohibit you from making any further disclosure of this information unless further disclosure is expressly permitted by the written consent of the person to whom it pertains or as otherwise permitted by 42 CFR part 2. A general authorization for the release of medical or other information is NOT sufficient for this purpose. The Federal rules restrict any use of the information to criminally investigate or prosecute any alcohol or drug abuse patient.The records that you are about to access may contain highly sensitive health information, the redisclosure of which is protected by Article 27-F of the [facility] Public Health law. If you continue you may have access to information: Regarding HIV / AIDS; Provided by facilities licensed or operated by the [facility] Office of Mental Health; or Provided by the [facility] Office for People With Developmental Disabilities. If such information is present, then the following [facility] mandated warning applies: This information has been disclosed to you from confidential records which are protected by state law. State law prohibits you from making any further disclosure of this information without the specific written consent of the person to whom it pertains, or as otherwise permitted by law. Any unauthorized further disclosure in violation of state law may result in a fine or alf sentence or both. A general authorization for the release of medical or other information is NOT sufficient authorization for further disc losure. Allergies and Adverse Reactions Type Description Substance Reaction Status Data Source(s ) Drug allergy Steri-Strip Drug allergy blisters Active eCW1 ([facility]) Sulfacet-R Sulfacet-R Sulfacet-R n and v Active eCW1 ([facility]) Chemical ADHESIVE TAPE ADHESIVE TAPE [facility] Family History Family Member Name Family Member Gender Family Member Status Date o f Status Description Data Source(s) Unknown Male Problem [facility]ENT ([employer] [facility], ) Unknown Unknown Problem MEDENT ([facility], ) Unknown Male Problem MEDENT ([facility] ) Unknown Unknown Encounters Encounter Providers Location Date Indications Data Source(s ) Outpatient Attender: Asuncion Triplett NP 06/24/2020 12:00:00 AM [facility] Outpatient Attender: Monica Diop FNPReferrer: Monica SHIPMAN EMERG[facility]-LAB 05/31/2020 07:04:00 AM EST - 05/31/2020 07:04:00 AM [facility] 05/31/2020 12:00:00 AM EST eCW1 ([facility] Outpatient [facility] 05/03/2020 12:00:00 AM EST eCW1 ([facility]) Outpatient Attender: MOJGAN MCKNIGHT MDReferrer: Linsey RUIZ SR [id number] 03/21/2020 01:07:49 PM EST [facility] Outpatient Attender: MOJGAN MCKNIGHT MDReferrer: Linsey DEB RUIZ [id number] 03/21/2020 04:41:38 AM EST [facility] Outpatient Attender: POLO RUIZ SRReferrer: SHIRA SMALL 10/29/2019 01:38:00 PM EDT - 10/29/2019 01:38:00 PM EDT [facility] Outpatient Attender: POLO RUIZ SR 10/29/2019 01:00:00 PM EDT [facility] Out[facility] 10/29/2019 12:00:00 AM EDT eCW1 ([facility]) Outpatient Attender: POLO RUIZ SRReferrer: SHIRA MARAVILLA EMERGENCY ROOM-LAB 10/28/2019 10:49:00 AM EDT - 10/28/2019 10:49:00 AM EDT [facility] C ENTER 10/01/2019 12:00:00 AM EDT eCW1 ([facility]) [facility] C ENTER 09/22/2019 12:00:00 AM EDT eCW1 ([facility]) Outpatient 09/15/2019 01:00:00 PM EDT [facility] Outpatient 07/21/2019 01:15:00 PM EST [facility] C ENTER 07/20/2019 12:00:00 AM EST eCW1 ([facility]) Outpatient Attender: Mary Jo SHIPMAN-CReferrer: SHIRA CASTILLO EMERGENCY ROOM-LAB REF 06/26/2019 01:13:00 PM EST - 06/26/2019 01:13:00 PM ES T [facility] Outpatient Attender: Mary Jo MARTINEZ 06/26/2019 01:00:0 0 PM EST [facility] 0 12:00:00 AM EST eCW1 (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 Outpatient Attender: Pretty William MD [email or web address] 10/2018 12:00:00 AM EST [facility] Outpatient Attender: SINDY RUBIO MD 04/23/2019 05:14:4 7 PM EST [facility] [place] [facility] Outpatient Attender: SINDY RUBIO MD 04/23/2019 03:42:0 0 PM EST PRETESTING [facility] PRETESTING Outpatient Attender: SHIRA BRANHAMReferr er: SHIRA BRANAHM EMERGENCY ROOM-LAB 01/09/2019 12:21:00 PM EDT - 01/09/2019 12:21:00 PM [facility] Outpatient Attender: POLO RUIZ SR 01/09/2019 11:30:00 AM [facility] Immunizations Vaccine Date Status Description Data Source(s) This CVX code allows reporting of a vacc ination when formulation is unknown (for example, when recording a Influenza vaccination when noted on a vaccination card) 05/18/2019 12:00:00 AM EST completed Influenza, Unspecified 05/18/[address] [place] [address] Medications Medication Brand Name Start Date Product Form Dose Route Admi nistrative Instructions Pharmacy Instructions Status Indications Reaction Description Data Source(s) 75 mcg 05/03/2020 12:00:00 AM EST tablet 90 TAKE ONE TABLET BY MOUTH EVERY MORNING ON AN EMPTY STOMACH TAKE ONE TABLET BY MOUTH EVERY MORNING O N AN EMPTY STOMACH SOLD: 05/06/2020 [facility] 75 mcg 10/30/2019 12:00:00 AM EDT tablet 90 TAKE ONE TABLET BY MOUTH EVERY DAY IN THE MORNING ON AN EMPTY STOMACH TAKE ONE TABLET BY MOUTH EVERY DAY IN TH E MORNING ON AN EMPTY STOMACH SOLD: 11/01/2019 [facility] 1,250 mcg (50,000 unit) 10/30/2019 12:00:00 AM EDT capsule 12 TAKE ONE TABLET BY MOUTH ONCE A WEEK TAKE ONE TABLET BY MOUTH ONCE A WEEK SOLD: 11/01/2019 [facility] 75 mcg 10/30/2019 12:00:00 AM EDT tablet 90 TAKE ONE TABLET BY MOUTH EVERY DAY IN THE MORNING ON AN EMPTY STOMACH TAKE ONE TABLET BY MOUTH EVERY DAY IN TH E MORNING ON AN EMPTY STOMACH SOLD: 01/30/2020 [facility] Ibuprofen 600 MG Oral Tablet Ibuprofen 03/16/2019 12:00:00 AM EDT ORAL completed MEDENT ([employer] [facility]) 75 mcg 08/07/2018 12:00:00 AM EDT tablet 30 TAKE ONE TABLET BY MOUTH EVERY MORNING ON AN EMPTY STOMACH TAKE ONE TABLET BY MOUTH EVERY MORNING O N AN EMPTY STOMACH SOLD: 08/02/2019 [facility] Insurance Providers Payer name Policy type / Coverage type Policy ID Covered democrat ID Covered democrat's relationship to alvarado Policy Alvarado Plan Information UMR [facility] [id number] SP [id number] UMR [id number] S [id number] UMR [id number] S [id number] Umr Primary [id number] UMR [id number] S [id number] UMR U [id number] Self [id number] UMR HEA [id number] S [id number] UMR [id number] Ximena [id number] UMR O [id number] S [id number] UMR [id number] S [id number] UMR [id number] S [id number] Umr Commercial [id number] Self [id number] ANSI-Commercial [id number] ANSI-Commercial [id number] ANSI-Commercial [id number] ANSI-Commercial [id number] ANSI-Commercial [id number] ANSI-Commercial [id number] UMR [facility] [id number] SP [id number] UMR -O/P [id number] 18 [id number] UMR [id number] S [id number] UMR [id number] S [id number] [employer] [id number] Ximena [id number] UMR HEA [id number] S [id number] ANSI-Commercial [id number] ANSI-Commercial [id number] [employer] (pr) [facility] Part B [id number] Self [id number] Umr (pr) Commercial [id number] Se lf [id number] [employer] (WC) Workers Compensation [id number] Self [id number] SELF PAY UNAVAILABLE S UNAVAILA BLE [employer]OM[employer] [id number] SP [id number] [employer] (pr) [employer] Part B [id number] Self [id number] Umr (pr) Commercial [id number] Se lf [id number] [employer] (pr) [employer] Part B [id number] Self [id number] Umr (pr) Commercial [id number] Se lf [id number] POMCO [id number] S [id number] [employer] (pr) [employer] Part B [id number] Self [id number] [employer] (WC) Workers Compensation [id number] Self [id number] Umr (pr) Commercial [id number] Se lf [id number] [employer] (pr) [employer] Part B [id number] Self [id number] [employer] (WC) Workers Compensation [id number] Self [id number] [employer] (pr) [employer] Part B [id number] Self [id number] [employer] (WC) Workers Compensation [id number] Self [id number] [employer] (HMO) [id number] Se lf [id number] [employer] (pr) Medigap Part B [id number] Self [id number] [employer] ([employer]) Workers Compensation [id number] Self [id number] [employer] (pr) Medig[employer] Part B [id number] Self [id number] [employer] ([place]) Workers Compensation [id number] Self [id number] [employer] (HMO) [id number] Se lf [id number] [employer] (pr) Medigap Part B [id number] Self [id number] [employer] (WC) Workers Compensation [id number] Self [id number] ONE [employer] CARE MANAGEMENT O [id number] S [id number] [employer] PPO O [id number] S [id number] [employer] [id number] MO2 [id number] [employer] COMM SELF [id number] S [id number] [employer] [id number] SP [id number] SELF PAY SP [id number] S [id number] [employer] -O/P [id number] 18 [id number] [employer] Commercial Self [id number] Problems, Conditions, and Diagnoses Code Display Name Description Problem Type Effective Dates Data Source(s) R03.0 Elevated blood-pressure reading, without diagnosis of hypertension ELEVATED BLOOD-PRESSURE READING, W/O JOSE Diagnosis 05/31/2020 07:04:00 AM [facility] E55.9 Vitamin D deficiency, unspecified VITAMIN D DEFI CIENCY, UNSPECIFIED Diagnosis 05/31/2020 07:04:00 AM [facility] Z13.220 Encounter for screening for lipoid disor ders ENCOUNTER FOR SCREENING FOR LIPOID DISOR Diagnosis 05/31/2020 07:04:00 AM [facility] E03.9 Hypothyroidism, unspecified HYPOTHYROIDISM, UNSPECIFIE D Diagnosis 05/31/2020 07:04:00 AM [facility] M79.645 Pain in left finger(s) PAIN IN LEFT FINGER(S) Diagnosi s 10/29/2019 01:38:00 PM [facility] J02.9 Acute pharyngitis, unspecified ACUTE PHARYNGITIS, UNSP ECIFIED Diagnosis 10/29/2019 01:00:00 PM [facility] J00 Acute nasopharyngitis [common cold] ACUTE NASOPH ARYNGITIS [COMMON COLD] Diagnosis 06/26/2019 01:13:00 PM [facility] Z15.02 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 Diagnosis 06/19/19 20 10:23:38 AM [facility] Z01.810 Encounter for preprocedural cardiovascul ar examination Encounter for preprocedural cardiovascul Diagnosis 04/24/2019 02:59:31 PM [facility] R06.02 Shortness of breath Shortness of breath Diagnosis 1 06/25/2018 02:59:31 PM EST [facility] R00.2 Palpitations Palpitations Diagnosis 04/24/2019 02:59:31 P M EST [facility] R07.89 Other chest pain Other chest pain Diagnosis 04/24/2019 02 :59:31 PM EST [facility] Surgeries/Procedures Procedure Description Date Indications Data Source(s) Lap W/Hysterectomy W/REM Tube&Ovaries Uterus 250GMS Or Less 05/04/2019 12:00:00 AM EST [facility] ([employer] [facility] [place], ) Results ID Date Data Source [id number] 06/01/2020 08:06:00 AM EST [facility] Name Value Range Interpretation Code Description Data Kamala rce(s) Supporting Document(s) Vitamin D, 25-Hydroxy 74.5 ng/mL 30.0-100.0 [facility] Vitamin D deficiency has been defined by the [place] of[place] and an Endocrine Society practice guideline as alevel of serum 25-OH vitamin D less than 20 ng/mL (1,2).The Endocrine Society went on to further define vitamin Dinsufficiency as a level between 21 and 29 ng/mL (2).1. IOM ([place] of [employer]). 2010. Dietary reference intakes for calcium and D. [place]: The National Academies Press.2. Dulce MF, Kishore NC, Simran CRUZ, et al. Evaluation, treatment, and prevention of vitamin D deficiency: an Endocrine Society clinical practice guideline. JCEM. 2010; 96(7):1911-30. ID Date Data Source [id number] 06/01/2020 08:06:00 AM EST [facility] Name Value Range Interpretation Code Description Data Kamala rce(s) Supporting Document(s) VITAMIN D, 25-HYDROXY 74.5 ng/mL 30.0-100.0 [facility] Vitamin D deficiency has been defined by the [place] of[place] and an Endocrine Society practice guideline as alevel of serum 25-OH vitamin D less than 20 ng/mL (1,2).The Endocrine Society went on to further define vitamin Dinsufficiency as a level between 21 and 29 ng/mL (2).1. IOM ([place] of [employer]). 2010. Dietary reference intakes for calcium and D. [place]: The National Academies Press.2. Dulce MF, Kishore NC, Simran CRUZ, et al. Evaluation, treatment, and prevention of vitamin D deficiency: an Endocrine Society clinical practice guideline. JCEM. 2010; 96(4):1911- 30.Performed at: RN - [facility] [address] [id number] Director: Germaine Rebollar MD, Phone: [phone] ID Date Data Source [id number] 05/31/2020 08:03:00 AM [facility] Name Value Range Interpretation Code Description Data [facility] rce(s) Supporting Document(s) MAGNESIUM 2.2 mg/dL 1.8-2.4 [facility] ID Date Data Source [id number] 05/31/2020 08:03:00 AM [facility] Name Value Range Interpretation Code Description Data [facility] rce(s) Supporting Document(s) GLUCOSE 82 mg/dL 74-106 [facility] BLOOD UREA NITROGEN 27 mg/dL 7-18 [facility] ital CREATININE 0.84 mg/dL 0.6-1.0 [facility] SODIUM 143 mmol/L 136-145 [facility] POTASSIUM 3.9 mmol/L 3.5-5.1 [facility] CHLORIDE 104 mmol/L 98-107 [facility] CO2 30 mmol/L 21-32 [facility] CALCIUM 9.3 mg/dL 8.5-10.1 [facility] ANION GAP 9.0 mmol/L 5-12 [facility] GLOMERULAR FILTRATION RATE 73 mL/min [facility] GFR IS CALCULATED IN mL/min/1.73m2 SOO L FUNCTION: >90MILDLY DECREASED: 60-89MILDY TO MODERATELY DECREASED: 45-59 MODERATELY TO SEVERELY DECREASED: 30-44SEVERELY DECREASED: 15-29RENAL FAILURE: <15 AST 17 U/L 15-37 [facility] ALT 23 U/L 12-78 [facility] ALKALINE PHOSPHATASE 69 U/L 46-116 [facility] pital TOTAL BILIRUBIN 0.9 mg/dL 0.2-1.0 [facility] TOTAL PROTEIN 7.1 g/dl 6.4-8.2 [facility] ALBUMIN 4.0 gm/dL 3.4-5.0 [facility] ID Date Data Source [id number] 05/31/2020 08:03:00 AM EST [facility] Name Value Range Interpretation Code Description Data Kamala rce(s) Supporting Document(s) CHOLESTEROL 188 mg/dL 0-200 [facility] TRIGLYCERIDES 29 mg/dL 0-150 [facility] LDL CHOLESTEROL 99 mg/dL 0-100 [facility] HDL CHOLESTEROL 83 mg/dL 40-60 H [facility] CHOL/HDL RATIO 2.3 0.0-5.0 [facility] ID Date Data Source [id number] 05/31/2020 07:49:00 [facility] Name Value Range Interpretation Code Description Data Kamala rce(s) Supporting Document(s) FREE T4 1.2 ng/dL 0.76-1.46 [facility] ID Date Data Source [id number] 05/31/2020 07:49:00 AM [facility] Name Value Range Interpretation Code Description Data Kamala rce(s) Supporting Document(s) TSH 5.251 uIU/mL 0.36-3.74 H [facility] ID Date Data Source [id number] 05/31/2020 07:16:00 AM [facility] Name Value Range Interpretation Code Description Data Kamala rce(s) Supporting Document(s) WHITE BLOOD COUNT 4.2 K/mm3 4.0-10.0 [facility] al RED BLOOD COUNT 4.66 M/mm3 4.00-5.50 [facility] HEMOGLOBIN 13.2 gm/dL 12.0-16.0 [facility] HEMATOCRIT 37.8 % 36.0-48.8 [facility] MEAN CELL VOLUME 81.1 fl 80-96 [facility] MEAN CORPUSCULAR HEMOGLOBIN 28.3 pg 27.0-31.0 [facility] MEAN CORPUSCULAR HGB CONC 34.9 g/dl 32.0-36.0 [facility] RED CELL DISTRIBUTION WIDTH 12.6 % 10.0-14.5 [facility] Hospital PLATELET COUNT 177 K/mm3 172-450 [facility] MEAN PLATELET VOLUME 10.5 fl 9.0-13.0 [facility] pital GRAN % 59.3 % 50-80.0 [facility] IG% 0.0 % 0.0-0.2 [facility] LYMPH % 30.3 % 25.0-50.0 [facility] MONO % 7.5 % 2.0-10.0 [facility] EOS % 2.4 % 0-5.0 [facility] BASO % 0.5 % 0.0-2.0 [facility] GRAN # 2.5 K/mm3 2.0-8.00 [facility] IG# 0.0 K/mm3 0.0-0.2 [facility] LYMPH # 1.3 K/mm3 1.0-5.0 [facility] MONO # 0.3 K/mm3 0.10-1.20 [facility] EOS # 0.1 K/mm3 0.0-0.5 [facility] BASO # 0.0 K/mm3 0.0-0.2 [facility] ID Date Data Source [id number] 10/29/2019 02:03:00 PM EDT [facility] DATE OF EXAMINATION: 10/29/2019 13:43 EDT TECHNIQUE: 4 views of the Left fifth Finger were obtained. HISTORY: Injury pain There is no fracture, dislocation or arthritic changes. Bones and soft tissuesappear normal. IMPRESSION: Unremarkable study of the finger. Electronically signed in PS360 by: Douglas Guerrero M.D. 10/29/2019 13:58 EDT Name Value Range Interpretation Code Description Data Kamala rce(s) Supporting Document(s) ID Date Data Source [id number] 10/28/2019 12:33:00 PM EDT [facility] FAX CLINIC Name Value Range Interpretation Code Description Data Kamala rce(s) Supporting Document(s) TSH 1.21 uIU/mL 0.36-3.74 [facility] ID Date Data Source [id number] 09/15/2019 03:33:00 PM EDT [facility] EXAM: Bone scan CLINICAL HISTORY: RIB PA IN CT NEG HX BREAST CA Correlation with existing relevant imaging studies: No existing prior relevant imaging studies are available. After intravenous injection of 27.2 mCi of Tc-99m MDP, images of the whole body were obtained in the anterior and posterior projection. Additional static images of the thorax, abdomen and pelvis were obtained. Mild increased uptake is seen in the shoulders, sternoclavicular joints, knees, and ankles compatible with degenerative changes. No areas of abnormal uptake in a pattern suspicious for osseous metastatic disease is seen. Activity is seen in the kidneys and urinary bladder with no evidence of obstructive uropathy. IMPRESSION: No evidence of osseous metastatic disease. K3 Name Value Range Interpretation Code Description Data [facility] Document(s) ID Date Data Source [id number] 09/15/2019 03:42:27 PM EDT [facility] [place] [facility] [facility] Name Value Range Interpretation Code Description Data [facility](s) Supporting Document(s) CA 125 @ 12.2 U/mL (<30.2) [facility] [place] [facility] ASSAY BY IMMUNOCHEMILUMINOMETRIC ASSAYON THE ADVIA BiosensiaAUR XPT. VALUESOBTAINED WITH DIFFERENT METHODS OR KITSCANNOT BE USED INTERCHANGEABLY FOR PATIENTMONITORING. RESULTS CANNOT BE INTERPRETEDAS ABSOLUTE EVIDENCE OF THE PRESENCE ORABSENCE OF MALIGNANCY. THE TEST IS NOTINTERPRETABLE IN . ID Date Data Source [id number] 07/21/2019 01:49:00 PM EST [facility] CT CHEST WITH IV CONTRAST INDICATION: Br east cancer on therapy. Left rib pain 3-4 weeks.COMPARISON: noneCONTRAST: 70 mL Omnipaque 300 One or more of the following dose reduction techniques were utilized in effectively lowering the radiation dose for this examination: Automated Exposure Control, Adjustment of the mA and/or kV according to patient size, or Iterative reconstruction. FINDINGS: LUNGS: Minimal peripheral atelectasis/scar. No pulmonary nodules or masses. No pneumonia. Central airways are patent. PLEURA AND PERICARDIUM: No pleural or pericardial effusions. MEDIASTINUM AND CHARLIE: Minimal anterior mediastinal soft tissue density with triangular appearance typical of residual thymus. No adenopathy. CHEST WALL: Bilateral axillary clips. No axillary adenopathy. Bilateral tissue expanders. No skeletal metastases or rib fractures are identified. No chest wall hematoma is noted. UPPER ABDOMEN:Small lesion upper liver probably corresponding abnormality described on prior MRI and ultras ound. Otherwise unremarkable. IMPRESSION: No etiology for reported pain is identified. Treatment related changes include bilateral axillary clips and tissue expanders. Professional interpretation performed at [facility] [place] . Name Value Range Interpretation Code Description Data [facility] Supporting Document(s) ID Date Data Source [id number] 06/26/2019 01:40:00 PM EST [facility] Name Value Range Interpretation Code Description Data [facility](s) Supporting Document(s) INFLUENZA A NEGATIVE NEGATIVE [facility] INFLUENZA B NEGATIVE NEGATIVE [facility] This is a rapid molecular in vitro diagn ostic test utilizingan isothermal nucleaic acid amplification technology for thequalitative detection and discrimination of influenza A andB viral RNA. Negative results do not preclude influenzavirus infection and should not be used as the sole basis fordiagnosis, treatment or other patient management decisions. ID Date Data Source INFLUENZA A,B PCR 06/26/2019 12:00:00 AM EST eCW1 ([facility]) Name Value Range Interpretation Code Description Data Kamala rce(s) Supporting Document(s) NEGATIVE NEGATIVE INFLUENZA A eCW1 ([facility]) NEGATIVE NEGATIVE INFLUENZA B eCW1 ([facility]) ID Date Data Source [id number] 06/19/2019 10:25:51 AM EST [facility] Name Value Range Interpretation Code Description Data Kamala rce(s) Supporting Document(s) Progress Note [facility] EPZIDp1tDsODDsYp13/NNPncNIDfy9AlTWdiWJy7DMcfSVYkJ1KvPTL6fN8mTUX5EYjXJuNuSyWnWOCs m [file] ICAgICAgICAgICAgICAgICAgICAgICAgICAgICAgIC QiXZBmZARrIEBqVNTtADJmFTNbYPHlVUIdSYSeQZTaAEYuNBSlEC0FPEExYTTuOFOzLHCyMYXbUEAqNJ AgICAgICAgICAgICAgICAgICAgICAgICAgICAgICAgICAgICAgICAgICAgICAgICAgICAgICAgICAgIC RdZZQdHBMeTKVwKFVvZZVqDYSaPI5PUIDsUAVtDAIq ICAgICAgICAgICAgICAgICAgICAgICAgICAgICAgICAgICAgICAgICAgICAgICAgICAgICAgICAgICAg AUJxLGChNCBcALOpQJXsRJYlARKxWQBqMERsLXDoRM5KUIBsYBKxUQDgLVFsMUOiDJYkMQLnSQJgFMQc ICAgICAgICAgICAgICAgICAgICAgICAgICAgICAgIC XgPVDeWDSaDZGzSSOdVZVzEKTeAOZkXCOcHLYvCLNoXDKaDHMfROXfXK9GNKRhCCMmLMLpURNwHIOkEF AgICAgICAgICAgICAgICAgICAgICAgICAgICAgICAgICAgICAgICAgICAgICAgICAgICAgICAgICAgIC XpWBNpCFLuZXBmFTCzATApCJJzFAFzBU7PXQVrCKPu ICAgICAgICAgICAgICAgICAgICAgICAgICAgICAgICAgICAgICAgICAgICAgICAgICAgICAgICAgICAg GHCzEZYfZTPtSJYuIXNePWUhTHFfQTDxRTUgCALfUWRbDS1GVQKpXIRjXKKgYRMhVYGuORKfROUhQGHu ICAgICAgICAgICAgICAgICAgICAgICAgICAgICAgIC JbVNJlHDYqZIDoHTYlRQCfTEFqPDRxXHFiSWEtSKAbOHKuBIEnYCOsHREiHO5AIOUcMNSgDLFxREVoSO AgICAgICAgICAgICAgICAgICAgICAgICAgICAgICAgICAgICAgICAgICAgICAgICAgICAgICAgICAgIC OyZUOgJBVfGWCtUEYvMDFkQPKiNMKfODIfMN5ZZDMs ICAgICAgICAgICAgICAgICAgICAgICAgICAgICAgICAgICAgICAgICAgICAgICAgICAgICAgICAgICAg WIJxTCIfIKIrYMVjITYmAJAxWLReFSMtRQKnQWQvFNHkJSAlAG2VAOPdETZpBSTwPPJtFJLrHHBzHXGc ICAgICAgICAgICAgICAgICAgICAgICAgICAgICAgIC PaPRGzJGYsAFVhIKLsXFJjFPZpHUIhVZVeJCMiIIGyNRJbVOPuFFFzGLGiOXBoVA6DVY17ySDqa0U6EN MuNL8uqqt/Ll2JGInsjfEenJSnRV8APmLyYN7hbm2JQxOaKB0gqo1DBCdOSlPdC8H5mJWdBAYwAPLZIl KgT96yXXorBf39JNysVPJdTsUxSJq4Wr8UQnPpB8qt FOBhFeA5GXLiKvM3HZPyLyC5GGStYmWbDUseFZ5Xu5OmmTFkXQq+Se4JFU7of3TkDHorMaWkNA1pmj6O ZWlMZuBvP7UcexD3DKM2GYOiEc7OGJAaWNJfgZSnLqVuLAYPRyXnH9KmgV21JNFXZi9+DQplbmRvYmoN KqC4DSVqg4BhKZx4II3HBGXvUAh3pEEeWNSnD8Plz5 WdAo26YPZjWvggS3Q3FR9pQXLGWAXtkXCounogJeGvGEOlUT2tQB7iXUCkDSK7TfAwFVRDUZ5IZJWlCG UgqONxCXYeJNEYQB6FWTeeTLF6KURbnoSswKWvJUfsRY0UMTTaabTuIaZvLKCTCXr+Ho9GST8fw1FzQL pyNRBqRD2dfj2JGPlUZkYjQ3L0mFTbS3R8RMjwYz8B FFPgFUGjTeYzICGVTVpuMU9FNJ0pcqC3HR9DwWBmGJKdVJMgfYYrUDk1T92qyWXsSQiaXB8UYUU+Reji+ Vq4XCJJrSBIxWTKgUaQnCXKPMvGbQ9EhH9PZb3GoG1GfAK47oUcsffUcVUueNP0DAM7zQLAnURESQB9F uVFqyI7nfoQaFjLmWLFOHoYfR77brVRmXNMaDES4ED GlMr8MRTKnQ8DbkrJxcOnwzgZtGZFgAFIZDW8QRNmomwHmmXUvwKmiPO16sIrnPS9NSa5JQdTlTC5aum 1DvVTyUp7ZZMFoQB9HQIDrNJJuAUTjQIB5GPSnFcOwWDheMCHaGGDpYAV6YXIxSYKmNC2RLnLdTWWgYp q5BYPeCXXzHRBofv3YGLSsMSK6VHA5VVLiGBKaXIQt ACnoIZXlWHOvQTO4RUMtUFWwUW5ZDyAbVKHlIFSiSWPtMZYkGRFcdq2BPKUnKXWeGrTpLpHrQIWmYAJc JAvgKNAsSUF1FlC1GUFiVFKyGR4TFcUaYEZkLWK6HeBzUJSiJXTvto4ZSUKhBKXlErH3JyFvFPFrIQWa FJjlPTLcEJG9BTplNWSeRIRlEN5GBpNlFAPjVJy3Sp AkXOAtICBozu4HBNLkRTByGTOoFAOvLIRgSMLaCIciOKXqHEN8PxEtUHSgESEtPI1NOtVbTZIsSNpwMi SjZEAgBVBgrk9MWFXyPKKhMHF1XfBkLEVbEMLlUMycLSTfRBB2OZMoJJLwGANqHY7VLwXqGAYtJbU2JH MbVBUnYDKxqa3VRJDgFQRlHlU2WVYvTPOdULVyWMte HMZpZRT0OpW7TQSoAJAgPH8ECcSxDYKwKlm4VfYqNHAcAVIaqd9IRCKmMWAbAQP8DGHwPAGjXOBjDIlf TNUgYSX2EKD4OIRoWKPhAP9LLtOuCDGoEmowGFPfDVIrXKMscy0ZWNBnHLHiSMD5URKbAQLrAZKsTEkh SYVjITN8BAP7BENuPQZnUG4MEwUaOVHaGZUtJWniNN TjBZZsat3VJCAlVDG5PFWrYGYbMGKiYLRzOQbfEJFvYKUnDDwuJIEfUNMwRC8NAlFbZOlaSYJAVvh0TJ zuY7b3MUVvWJ8EB9Mxq4QxKcgnIGPDQNvmHM3sywYxGMMrDj4MJ4oGVuz9ZTJ7FXLlM4RsZDp2BhYoTb UrXXYgMSXnQlEgBjGiRh3wCCXzUCadVzFzFkW8JAwu HhUkGEB9ViX2EeYcDJZ1VJD1TkBtEE8IBw2GTkZ6ART7lAOwKr5KOOI5VvGCEzEhFL5LOLx= ID Date Data Source [id number] 05/05/2019 06:38:02 AM EST [facility] [place] [facility] Name Value Range Interpretation Code Description Data Kamala rce(s) Supporting Document(s) WBC 7.2 10*3/uL (4.1-11.0) [facility] [place] [facility] [place] RBC 4.45 10*6/uL (4.00-5.40) [facility] [place] [facility] HGB 12.0 g/dL (12.0-16.0) [facility] [place] [facility] HCT 36.3 % (36.0-47.0) [facility] [place] [facility] PERFORMED AT [address] [facility] [address] MCV 81.5 fL (80.0-95.0) [facility] [place] [facility] MCH 27.0 pg (27.0-32.0) [facility] [place] [facility] MCHC 33.1 g/dL (32.0-36.0) [facility] [place] [facility] RDW 15.6 % (10.5-14.5) H [facility] [place] [facility] PLT 199 10*3/uL (150-450) [facility] [place] [facility] MPV 8.9 fL (7.1-10.7) [facility] [place] [facility] ID Date Data Source [id number] 05/11/2019 10:45:16 AM EST [facility] [place] [facility] [id number]# SURGICAL PATHOLOGY REPORTPatient Name:JOSE EDUARDO HEINWard:1975Received:05/04/2019Accession #:[id number](s) Received: A: Uterus, cervix, bilateral tube (remnants) and ovariesClinical Diagnosis and History: Genetic susceptibility to ovarian ca, history of bilateral tubal. DIAGNOSIS:UTERUS, CERVIX, BILATERAL TUBE REMNANTS, AND OVARIES (UTERINE WEIGHT IS 80GM). CERVIX: NO SIGNIFICANT HISTOPATHOLOGIC CHANGE. ENDOMETRIUM: PROLIFERATIVE WITH TUBAL METAPLASIA MYOMETRIUM: INTRAMURAL LEIOMYOMA AND ADENOMYOSIS. SEROSA: ADHESIONS RIGHT AND LEFT OVARIES AND BILATERAL FALLOPIAN TUBE REMNANTS: RIGHT OVARY WITH CYSTIC FOLLICLES AND LEFT OVARY WITH NO SIGNIFICANT HISTOPATHOLOGIC CHANGE; SMALL PORTION OFREMNANT OF LEFT TUBE; NO DEFINITIVE REMNANT OF RIGHT TU BEIS IDENTIFIED. GROSS DESCRIPTION: Specimen received in formalin labeled "uterus, cervix, bilateral tubes(remnants) and ovaries" is a uterus and cervix with attached ovaries andpossible fallopian tube stumps. The uterus and cervix measures 9.0 cmfrom fundus to cervix, 5.0 cm from cornu to cornu, and 3.5 cm fromanterior to posterior. The uterus and cervix weighs 80 gm void of theadnexa, and the serosa is mottled medina-pink to medina-red and along theanterior portion is an adherent piece of yellow adipose tissue measuring1.5 x 1.2 x 0.2 cm. The cervix measures 3.2 cm from 9:00 to 3:00, 3.0 cmfrom 12:00 to 6:00 with an eccentric slitlike 0.5 cm os exuding thickenedhemorrhagic material. The exocervix is smooth, glistening and medina-pink. The endocervical canal is trabeculated to slightly granular and medina-pink. The lower uterine segment measures 2.5 cm in length, up to 0.5 cm indiameter and is glistening, medina-pink to medina-red. The triangularendometrium averages 3.2 cm in width, 3.8 cm in armando th and averages 0.3 cmin thickness. The endometrium is glistening, medina-pink to medina-red withadherent blood clot. Along the posterior portion, at the right cornu is asubmucosal, well-circumscribed, junior-white, whorled nodule measuring 1.4cm in greatest dimension, and the cut surface is whorled. No areas ofhemorrhage or necrosis are found. The right ovary measures 3.0 x 2.0 x1.5 cm and the outer surface ranges from yellow to pink and cerebriform totwo underlying intact cysts measuring 0.5 cm and 1.5 cm in greatestdimension. The cut surfaces of both cysts are smooth-walled,semitranslucent, medina-pink and contain thin, hemorrhagic material. Nosolid areas are found. The remaining cut surface is medina-pink with ovarianarchitecture to include multiple corpora lutea averaging 0.4 cm ingreatest dimension. At the right cornu is a possible fallopian tube stumpmeasuring 0.5 cm in length, 0.5 cm in diameter, and the outer surface istan-yellow with no definitive lumen identified. The left ovary iscerebriform, medina-yellow and measures 2.0 x 1.5 x 0.5 cm. The cut surfaceis yellow to pink with normal ovarian architecture to include corporalutea averaging 0.2 cm in greatest dimension. At the left cornu is apossible fallopian tube stump measuring 0.5 cm in length, 0.4 cm indiameter, and the outer surface is medina-pink and glistening, and the cutsurface is a pinpoint lumen surrounded by a homogeneous, intact, medina-pinkwall. [employer] sections are submitted for microscopic examinationas follows: AC/PC anterior/posterior cervix; AE/PE anterior/posteriorendomyometrium; S adipose tissue and serosa in its entirety; N guest experience representative section of nodule; RO and RTO right ovary in its entiretyto include sections of probable tube; LO and LTO left ovary in itsentirety to include possible sections of tube. (11 blocks) sara/Normarocessed at [facility], Histopathology, [address] [place] [address], [address]. Reported at [facility], [address] [place] [address], [facility].Reported: 05/11/2019Electronically Signed Out By Windy Sousa D.O. jzwPathology Associates [facility]This report may include immunohistochemical or in-situ hybridizationresults. Testing was developed and the performance characteristicsdetermined by [facility] as required by CLIA '88. The FDAhas determined that approval for specific use is not necessary forclinical use. The quality of Hematoxylin and Eosin stains and asapplicable, for all immunohistochemical and/or special stains, includingpositive and negative controls, were reviewed and considered appropriate.ICD codes: Z15.02CPT4 codes: A: 76549A Name Value Range Interpretation Code Description Data Kamala rce(s) Supporting Document(s) ID Date Data Source [id number] 05/08/2019 12:56:00 PM RAMO Pat[id number] [place] [place], [place] [address]SWY[place]E NAME: JOSE EDUARDO HEINDATE OF : 1975REPORT: OPERATIONPATIENT NUMBER: [id number] STATUS: SDMEDICAL RECORD NUMBER: [id number] OF ADMISSION: 05/04/2019DATE OF DISCHARGE:ROOM: 02DATE OF PROCEDURE: 05/04/2019PREOPERATIVE DIAGNOSIS: BRCA1 mutation.POSTOPERATIVE DIAGNOSIS: BRCA1 mutation.OPERATION PERFORMED: Laparoscopic hysterectomy, bilateralsalpingo-oophorectomy with da Jai robotics.SURGEON: Sindy Rubio MDASSISTANT: MARGARET Driscoll; resident Shweta Fontenot MD (not qualifiedto logging assistant).ANESTHESIA: General.ESTIMATED BLOOD LOSS: 75 mL.TUBES AND DRAINS: Mujica catheter.FINDINGS: The uterus was normal sized. The ovaries appeared normal. Thepatient had undergone prior bilateral salpingectomy and there were onlysmall portions of the proximal tubes remaining. Peritoneal surfaces weresmooth. The liver appeared normal. The omentum appeared normal.COMPLICATIONS: None.INDICATIONS: A 43-year-old, who was diagnosed with breast cancer lastyear. She has a strong family history as well and underwent genetictesting which showed the BRCA1 mutation.PROCEDURE: The patient was taken to the operating room and afterestablishment of adequate general anesthesia, was placed in the dorsallithotomy position and prepped and draped in usual sterile fashion. Thecervix was grasped with a single-tooth tenaculum. The uterus sounded to 8cm and a VCare uterine manipulator was inserted in the endometrial cavityand positioned in the upper vagina. Attention was then turned to theabdomen. Marcaine was infiltrated. Incision was made approximately 4 to 5cm above the umbilicus. Veress needle was inserted and pneumoperitoneumwas created. Veress needle was removed and an 8 mm trocar was inserted. The camera was introduced and the abdomen and pelvis were inspected. Underdirect visualization after translumination and infiltration with Marcaine, three da Jai ports and 12-mm development assistant port were inserted. Washings wereobtained. The patient was placed in steep Trendelenburg and the da Vinciwas docked. The remainder of the procedure was performed through the daVinci robotic system. The right round ligament was coagulated and divided.The retroperitoneal space was opened. The ureter was identified. Theinfundibulopelvic ligament was isolated, coagulated and divided. The broadligament was incised. Same procedure was carried out on the left. Thevesicouterine serosa was incised and the bladder was dissected sharply offthe anterior uterus and cervix. There was scarring in this region from herprior section. The uterine arteries were then coagulated anddivided bilaterally. The parametria were coagulated and dividedbilaterally. The vagina was circumferentially incised and the specimen wasdelivered. The vaginal cuff was then closed with a running stitch of 2-0V-Loc suture. Pelvis was irrigated. Good hemostasis was noted. Allinstruments and trocars were removed and the patient was taken out ofTrendelenburg. The incisions were closed with interrupted stitches of 3-0Monocryl followed by Indermil. All sponge, needle and blade counts werecorrect at the end of the procedure. The patient was awakened and taken tothe recovery room in stable condition.DICTATED BY: SHAD Hughesictated: 05/04/2019 9:58DT: 05/04/2019 10:02Job #: [id number]: [facility] computer generated reports are not confirmed orauthenticated unless they are signed by the providerElectronically Authenticated by:SINDY RUBIO MD On 05/08/2019 12:56 PM EST Name Value Range Interpretation Code Description Data Kamala rce(s) Supporting Document(s) ID Date Data Source [id number] 05/06/2019 06:58:18 AM EST [facility] [place] [facility] [address] [id number]# MISCELLANEOUS CYTOLOGY REPORTAccession #: [id number] of Specimen(s): A: Pelvic WashingClinical Diagnosis and History: Genetic susceptibility to ovarian caGross DescriptionPelvic Washin cc clear colorless fluid. Final DiagnosisSpecimen AdequacySatisfactoryFinal DiagnosisNEGATIVE FOR MALIGNANCY Mesothelial cells and histiocytes.Processed and screenAs applicable, positive and negative controls for all immunohistochemicaland/or special stains were reviewed and considered appropriate. Reported: 05/06/2019 06:56Electronically Signed Out By Windy Sousa D.O.Pathology AssociatesCytotechnologist: Tana KOCH(ASCP)[facility] ICD Code: Z15.02 CPT Code: A: 56377J Name Value Range Interpretation Code Description Data Kamala rce(s) Supporting Document(s) ID Date Data Source [id number] 04/23/2019 08:56:24 PM EST [facility] [place] [facility] Name Value Range Interpretation Code Description Data Kamala rce(s) Supporting Document(s) CA 125 @ 12.6 U/mL (<30.2) [facility] [place] [facility] ASSAY BY IMMUNOCHEMILUMINOMETRIC ASSAYON THE ADVIA BiosensiaAUR XPT. VALUESOBTAINED WITH DIFFERENT METHODS OR KITSCANNOT BE USED INTERCHANGEABLY FOR PATIENTMONITORING. RESULTS CANNOT BE INTERPRETEDAS ABSOLUTE EVIDENCE OF THE PRESENCE ORABSENCE OF MALIGNANCY. THE TEST IS NOTINTERPRETABLE IN . ID Date Data Source [id number] 04/23/2019 07:14:48 PM EST [facility] [place] [facility] SPEC EXP DATE 05/07/2019PATI ENT ABO/Rh O NEGATIVEANTIBODY SCREEN NEGATIVETESTING SITE PERFORMED AT [address] [place] [address] Name Value Range Interpretation Code Description Data Kamala rce(s) Supporting Document(s) ID Date Data Source [id number] 04/23/2019 05:35:54 PM EST [facility] [place] [facility] Name Value Range Interpretation Code Description Data Kamala rce(s) Supporting Document(s) SODIUM 142 mmol/L (136-145) [facility] [place] [facility] POTASSIUM 4.4 mmol/L (3.6-5.2) [facility] [place] [facility] CHLORIDE 105 mmol/L (100-108) [facility] [place] [facility] CO2 31 mmol/L (22-31) [facility] [place] [facility] ANION GAP 6 mmol/L (7-16) L [facility] [place] [facility] UREA NITROGEN 23 mg/dL (7-24) [facility] [place] [facility] CREATININE 0.91 mg/dL (0.60-1.00) [facility] [place] [facility] BUN/CREAT RATIO 25.3 RATIO (10.0-20.0) H [facility] GLUCOSE 87 mg/dL (70-99) [facility] [place] [facility] CALCIUM 9.5 mg/dL (8.4-10.2) [facility] [place] [facility] GFR >60 ml/min/1.73m2 (>59) [facility] [place] [facility] GFR ( AMER) >60 ml/min/1.73m2 (>59) [facility] [place] [facility] GFR INTERPRETATION [facility] --NORMAL KIDNEY FUNCTION OR MILD DISEASE - GFR >OR= 60CHRONIC KIDNEY DISEASE - GFR 15 - 59RENAL FAILURE - GFR <15 Est. GFR calculation based on the MDRDstudy equation, which assumes a steadystate for creatinine. Est. GFR should notbe used for medication dosing. ID Date Data Source [id number] 04/23/2019 05:14:46 PM EST [facility] [place] [facility] Name Value Range Interpretation Code Description Data Kamala rce(s) Supporting Document(s) WBC 5.3 10*3/uL (4.1-11.0) [facility] [place] [facility] [place] RBC 4.94 10*6/uL (4.00-5.40) [facility] [place] [facility] HGB 13.1 g/dL (12.0-16.0) [facility] [place] [facility] HCT 39.8 % (36.0-47.0) [facility] [place] [facility] [address] [facility] [address] MCV 80.6 fL (80.0-95.0) [facility] [place] [facility] MCH 26.6 pg (27.0-32.0) L [facility] [place] [facility] MCHC 32.9 g/dL (32.0-36.0) [facility] [place] [facility] RDW 15.5 % (10.5-14.5) H [facility] [place] [facility] PLT 224 10*3/uL (150-450) [facility] [place] [facility] MPV 8.4 fL (7.1-10.7) [facility] [place] [facility] Procedure Social History Code Duration Value Status Description Data Source(s ) Smoking 10/29/2019 12:00:00 AM EDT Never Smoker completed Never S moker eCW1 ([facility]) Smoking 10/29/2019 12:00:00 AM EDT Never Smoker completed Never S moker eCW1 ([facility]) Smoking 10/29/2019 12:00:00 AM EDT Never Smoker completed Never S moker eCW1 ([facility]) Alcohol intake 06/19/2019 12:00:00 AM EST Current non-d junior of alcohol (finding) completed Current non-drinker of alcohol (finding) [facility] Smoking 06/19/2019 12:00:00 AM EST Never smoker completed Never s [facility] Vital Signs ID Date Data Source UNK Name Value Range Interpretation Code Description Data Source(s) Oxygen saturation in Arterial blood by Pulse oximetry 99 % 99 % eCW1 ([facility]) Respiratory rate 18 /min 18 /min eCW1 ([facility]) Heart rate 80 /min 80 /min eCW1 ([facility]) Body temperature 98.6 [degF] 98.6 [degF] eCW1 ( [facility]) Body mass index (BMI) [Ratio] 27.90 kg/m2 27.90 kg/m2 eCW1 ([facility]) Body weight 155.0 [lb_av] 155.0 [lb_av] eCW1 ([facility]) Body height 62.5 [in_i] 62.5 [in_i] eCW1 ([facility]) Deprecated Oxygen saturation in Capillary blood by Oximetry 99 % 99 % eCW1 ([facility]) Respiratory rate 16 /min 16 /min eCW1 ([facility]) Heart rate 80 /min 80 /min eCW1 ([facility]) Body temperature 98.2 [degF] 98.2 [degF] eCW1 ( [facility]) Body mass index (BMI) [Ratio] 27.81 kg/m2 27.81 kg/m2 eCW1 ([facility]) Body weight Measured 154.54 [lb_av] 154.54 [lb_ av] eCW1 ([facility]) Body height 62.5 [in_us] 62.5 [in_us] eCW1 ([facility]) Body weight 76.205 kg 76.205 kg [facility] ([employer] [facility] Body height 161.3 cm 161.3 cm [facility] ([employer] [facility] Body mass index (BMI) [Ratio] 29.3 kg/m2 29.3 k g/m2 [facility] ([employer] [facility] Body surface area 1.81 m2 1.81 m2 [facility] ([employer] [facility] Body weight 168.00 [lb_av] 168.00 [lb_av] MEDEN T ([employer] [facility] Body height 63.5 [in_i] 63.5 [in_i] MEDENT ([employer] [facility] 5'3.50" Respiratory rate 16 /min 16 /min MED[facility] ( [employer] [facility] Heart rate 81 /min 81 /min [facility] ([employer] [facility] Diastolic blood pressure 74 mm[Hg] 74 mm[Hg] MEDENT ([employer] [facility] Systolic blood pressure 105 mm[Hg] 105 mm[Hg] M EDENT ([employer] [facility] Body weight 75.751 kg 75.751 kg [facility] ([employer] Body height 161.3 cm 161.3 cm [facility] ([employer] [facility] Body mass index (BMI) [Ratio] 29.1 kg/m2 29.1 k g/m2 [facility] ([employer] [facility] Body surface area 1.80 m2 1.80 m2 [facility] ([employer] [facility] Body weight 167.00 [lb_av] 167.00 [lb_av] MEDEN T ([employer] [facility] Body height 63.5 [in_i] 63.5 [in_i] MEDENT ([employer] [facility]) 5'3.50" Respiratory rate 16 /min 16 /min MEDENT ( [employer] [facility], ) Heart rate 102 /min 102 /min MEDENT ([employer] [facility]) Diastolic blood pressure 70 mm[Hg] 70 mm[Hg] MEDENT ([employer] [facility]) Systolic blood pressure 129 mm[Hg] 129 mm[Hg] M EDAIMEE ([employer] [facility]) ID Date Data Source [id number] 06/19/2019 10:25:51 AM [facility] Name Value Range Interpretation Code Description Data Source(s) WEIGHT RECORDED 161 lb 161 lb [facility] Body height Measured 62 in 62 in [facility]
[2020-06-17] MEDS ORDERED: LEVO75TA4 PO (09:49)
[2020-06-17] MEDS ORDERED: CYCL-707 PO (10:33)
--- OUTSIDE RECORDS SUMMARY | 2020-06-17 10:42 | CCD ---
Author Author [facility] Address Unknown Phone Unavailable Care Team Providers Care Pc Maintenance Technician Name Role Phone Yael RUBIO MD Unavailable [...] Unavailable Pretty William MD Unavailable Unavailable Pretty Willima MD Unavailable Unavailable Pretty William MD Unavailable [...] CUELLAR MD Unavailable Unavailable Volcko, M Asuncion WORK ENVIRONMENT SAFETY INSPECTOR Unavailable Unavailable Volcko, M Asuncion WORK ENVIRONMENT SAFETY INSPECTOR Unavailable Unavailable Volcko, M Asuncion WORK ENVIRONMENT SAFETY INSPECTOR Unavailable Unavailable Volcko, M Asuncion WORK ENVIRONMENT SAFETY INSPECTOR Unavailable Unavailable Volcko, M Asuncion WORK ENVIRONMENT SAFETY INSPECTOR Unavailable Unavailable Volcko, M Asuncion WORK ENVIRONMENT SAFETY INSPECTOR Unavailable Unavailable Volcko, M Asuncion WORK ENVIRONMENT SAFETY INSPECTOR Unavailable Unavailable Volcko, M Asuncion WORK ENVIRONMENT SAFETY INSPECTOR Unavailable Unavailable Volcko, M Asuncion WORK ENVIRONMENT SAFETY INSPECTOR Unavailable Unavailable Volcko, M Asuncion WORK ENVIRONMENT SAFETY INSPECTOR Unavailable Unavailable Volcko, M Asuncion WORK ENVIRONMENT SAFETY INSPECTOR Unavailable Unavailable Volcko, M Asuncion WORK ENVIRONMENT SAFETY INSPECTOR Unavailable Unavailable Volcko, M Asuncion WORK ENVIRONMENT SAFETY INSPECTOR Unavailable Unavailable Volcko, M Asuncion WORK ENVIRONMENT SAFETY INSPECTOR Unavailable Unavailable Volcko, M Asuncion WORK ENVIRONMENT SAFETY INSPECTOR Unavailable Unavailable Volcko, M Asnucion WORK ENVIRONMENT SAFETY INSPECTOR Unavailable Unavailable Volcko, M Asuncion WORK ENVIRONMENT SAFETY INSPECTOR Unavailable Unavailable Volcko, M Asuncion WORK ENVIRONMENT SAFETY INSPECTOR Unavailable Unavailable Volcko, M Asuncion WORK ENVIRONMENT SAFETY INSPECTOR Unavailable Unavailable Volcko, M Asuncion WORK ENVIRONMENT SAFETY INSPECTOR Unavailable Unavailable Volcko, M Asuncion WORK ENVIRONMENT SAFETY INSPECTOR Unavailable Unavailable Volcko, M Asuncion WORK ENVIRONMENT SAFETY INSPECTOR Unavailable Unavailable Volcko, M Asuncion WORK ENVIRONMENT SAFETY INSPECTOR Unavailable Unavailable Volcko, M Asuncion WORK ENVIRONMENT SAFETY INSPECTOR Unavailable Unavailable Volcko, M Asuncion WORK ENVIRONMENT SAFETY INSPECTOR Unavailable Unavailable Volcko, M Asuncion WORK ENVIRONMENT SAFETY INSPECTOR Unavailable Unavailable Volcko, M Asuncion WORK ENVIRONMENT SAFETY INSPECTOR Unavailable Unavailable Volcko, M Asuncion WORK ENVIRONMENT SAFETY INSPECTOR Unavailable Unavailable Volcko, M Asuncion WORK ENVIRONMENT SAFETY INSPECTOR Unavailable Unavailable Volcko, M Asuncion WORK ENVIRONMENT SAFETY INSPECTOR Unavailable Unavailable Volcko, M Asuncion WORK ENVIRONMENT SAFETY INSPECTOR Unavailable Unavailable Volcko, M Asuncion WORK ENVIRONMENT SAFETY INSPECTOR Unavailable Unavailable Volcko, M Asuncion WORK ENVIRONMENT SAFETY INSPECTOR Unavailable Unavailable Volcko, M Asuncion WORK ENVIRONMENT SAFETY INSPECTOR Unavailable Unavailable Volcko, M Asuncion WORK ENVIRONMENT SAFETY INSPECTOR Unavailable Unavailable Volcko, M Asuncion WORK ENVIRONMENT SAFETY INSPECTOR Unavailable Unavailable Volcko, M Asuncion WORK ENVIRONMENT SAFETY INSPECTOR Unavailable Unavailable DWYER, KALRA PAULA TELEPHONE EXCHANGE OPERATOR-C, MSN Unavailable Unavailab le DWYERKARLA QUEZADA PAULA TELEPHONE EXCHANGE OPERATOR-C, MSN Unavailable Unavailab le DWYERKARLA PAULA TELEPHONE EXCHANGE OPERATOR-C, MSN Unavailable Unavailab le DWYERKARLA QUEZADA PAULA TELEPHONE EXCHANGE OPERATOR-C, MSN Unavailable Unavailab le DWYERKRALA QUEZADA PAULA TELEPHONE EXCHANGE OPERATOR-C, MSN Unavailable Unavailab le DWYERKARLA QUEZADA PAULA TELEPHONE EXCHANGE OPERATOR-C, MSN Unavailable Unavailab le DWYERKARLA QUEZADA PAULA TELEPHONE EXCHANGE OPERATOR-C, MSN Unavailable Unavailab le DWYERKARLA PAULA TELEPHONE EXCHANGE OPERATOR-C, MSN Unavailable Unavailab le DWYERKARLA PAULA TELEPHONE EXCHANGE OPERATOR-C, MSN Unavailable Unavailab le DWYERKARLA PAULA TELEPHONE EXCHANGE OPERATOR-C, MSN Unavailable Unavailab le DWYERKARLA PAULA TELEPHONE EXCHANGE OPERATOR-C, MSN Unavailable Unavailab le DWYERKARLA PAULA TELEPHONE EXCHANGE OPERATOR-C, MSN Unavailable Unavailab le DWYERKARLA PAULA TELEPHONE EXCHANGE OPERATOR-C, MSN Unavailable Unavailab le DWYER, KARLA PAULA TELEPHONE EXCHANGE OPERATOR-C, MSN Unavailable Unavailab le DWYER, KARLA PAULA TELEPHONE EXCHANGE OPERATOR-C, MSN Unavailable Unavailab le DWYER, KARLA PAULA TELEPHONE EXCHANGE OPERATOR-C, MSN Unavailable Unavailab le DWYER, KARLA PAULA TELEPHONE EXCHANGE OPERATOR-C, MSN Unavailable Unavailab le DWYER, KARLA PAULA TELEPHONE EXCHANGE OPERATOR-C, MSN Unavailable Unavailab le DWYER, KARLA PAULA TELEPHONE EXCHANGE OPERATOR-C, MSN Unavailable Unavailab le DWYER, KARLA PAULA TELEPHONE EXCHANGE OPERATOR-C, MSN Unavailable Unavailab le DWYER, KARLA PAULA TELEPHONE EXCHANGE OPERATOR-C, MSN Unavailable Unavailab le DWYER, KARLA PAULA TELEPHONE EXCHANGE OPERATOR-C, MSN Unavailable Unavailab le DWYER, KARLA PAULA TELEPHONE EXCHANGE OPERATOR-C, MSN Unavailable Unavailab le DWYER, KARLA PAULA TELEPHONE EXCHANGE OPERATOR-C, MSN Unavailable Unavailab le DWYER, KARLA PAULA TELEPHONE EXCHANGE OPERATOR-C, MSN Unavailable Unavailab le DWYER, KARLA PAULA TELEPHONE EXCHANGE OPERATOR-C, MSN Unavailable Unavailab le DWYER, KARLA PAULA TELEPHONE EXCHANGE OPERATOR-C, MSN Unavailable Unavailab le DWYER, KARLA PAULA TELEPHONE EXCHANGE OPERATOR-C, MSN Unavailable Unavailab le DWYER, KARLA PAULA TELEPHONE EXCHANGE OPERATOR-C, MSN Unavailable Unavailab le DWYER, KARLA PAULA TELEPHONE EXCHANGE OPERATOR-C, MSN Unavailable Unavailab le DWYER, KARLA PAULA TELEPHONE EXCHANGE OPERATOR-C, MSN Unavailable Unavailab le DWYER, KARLA PAULA TELEPHONE EXCHANGE OPERATOR-C, MSN Unavailable Unavailab le DWYER, KARLA PAULA TELEPHONE EXCHANGE OPERATOR-C, MSN Unavailable Unavailab le DWYER, KARLA PAULA TELEPHONE EXCHANGE OPERATOR-C, MSN Unavailable Unavailab le DWYER, KARLA PAULA TELEPHONE EXCHANGE OPERATOR-C, MSN Unavailable Unavailab le DWYER, KARLA PAULA TELEPHONE EXCHANGE OPERATOR-C, MSN Unavailable Unavailab le DWYER, KARLA PAULA TELEPHONE EXCHANGE OPERATOR-C, MSN Unavailable Unavailab le DWYER, KARLA PAULA TELEPHONE EXCHANGE OPERATOR-C, MSN Unavailable Unavailab le DWYER, KARLA PAULA TELEPHONE EXCHANGE OPERATOR-C, MSN Unavailable Unavailab le DWYER, KARLA PAULA TELEPHONE EXCHANGE OPERATOR-C, MSN Unavailable Unavailab le KARLA DWYER TELEPHONE EXCHANGE OPERATOR-C, MSN Unavailable Unavailab lonnie DWYER, KARLA PEOPLESA TELEPHONE EXCHANGE OPERATOR-C, MSN Unavailable Unavailab KARLA AdamsA TELEPHONE EXCHANGE OPERATOR-C, MSN Unavailable Unavailab le Yael RUBIO MD [...] Yael RUBIO MD Unavailable Unavailable Sabrina Matthews TELEPHONE EXCHANGE OPERATOR-C Unavailable Unavailabl e Cassie, Reginah W Mary Jo TELEPHONE EXCHANGE OPERATOR-C Unavailable Unavailabl e Cassie, Reginaalphonso W Mary Jo TELEPHONE EXCHANGE OPERATOR-C Unavailable Unavailabl e Cassie, Reginaalphonso W Mary Jo TELEPHONE EXCHANGE OPERATOR-C Unavailable Unavailabl e Cassie, Reginaalphonso W Mary Jo TELEPHONE EXCHANGE OPERATOR-C Unavailable Unavailabl e Cassie, Reginaalphonso W Mary Jo TELEPHONE EXCHANGE OPERATOR-C Unavailable Unavailabl e Cassie, Reginaalphonso W Mary Jo TELEPHONE EXCHANGE OPERATOR-C Unavailable Unavailabl e Cassie, Reginaalphonso W Mary Jo TELEPHONE EXCHANGE OPERATOR-C Unavailable Unavailabl e Cassie, Reginaalphonso W Mary Jo TELEPHONE EXCHANGE OPERATOR-C Unavailable Unavailabl e Cassie, Regina W Mary Jo TELEPHONE EXCHANGE OPERATOR-C Unavailable Unavailabl e Cassie, Reginaalphonso W Mary Jo TELEPHONE EXCHANGE OPERATOR-C Unavailable Unavailabl e Cassie, Sabrina W Mary Jo TELEPHONE EXCHANGE OPERATOR-C Unavailable Unavailabl e Cassie, Reglainey W Mary Jo TELEPHONE EXCHANGE OPERATOR-C Unavailable Unavailabl e Cassie, Reglainey W Mary Jo TELEPHONE EXCHANGE OPERATOR-C Unavailable Unavailabl e Cassie, Reglainey W Mary Jo TELEPHONE EXCHANGE OPERATOR-C Unavailable Unavailabl e Cassie, Regklaus W Mary Jo TELEPHONE EXCHANGE OPERATOR-C Unavailable Unavailabl e Cassie, Regklaus W Mary Jo TELEPHONE EXCHANGE OPERATOR-C Unavailable Unavailabl e Cassie, Regklaus W Mary Jo TELEPHONE EXCHANGE OPERATOR-C Unavailable Unavailabl e Cassie, Regklaus W Mary Jo TELEPHONE EXCHANGE OPERATOR-C Unavailable Unavailabl e Cassie, Regklaus W Mary Jo TELEPHONE EXCHANGE OPERATOR-C Unavailable Unavailabl e Cassie, Regina W Mary Jo TELEPHONE EXCHANGE OPERATOR-C Unavailable Unavailabl e Cassie, Regina W Mary Jo TELEPHONE EXCHANGE OPERATOR-C Unavailable Unavailabl e Cassie, Regina W Mary Jo TELEPHONE EXCHANGE OPERATOR-C Unavailable Unavailabl e Cassie, Regina W Mary Jo TELEPHONE EXCHANGE OPERATOR-C Unavailable Unavailabl e Cassie, Regina W Mary Jo TELEPHONE EXCHANGE OPERATOR-C Unavailable Unavailabl e Cassie, Regina W Mary Jo TELEPHONE EXCHANGE OPERATOR-C Unavailable Unavailabl e Cassie, Regina W Mary Jo TELEPHONE EXCHANGE OPERATOR-C Unavailable Unavailabl e Cassie, Regina W Mary Jo TELEPHONE EXCHANGE OPERATOR-C Unavailable Unavailabl e Cassie, Regklaus Sridhar Mary Jo TELEPHONE EXCHANGE OPERATOR-C Unavailable Unavailabl e Cassie, [facility] W Mary Jo TELEPHONE EXCHANGE OPERATOR-C Unavailable Unavailabl e Cassie, [facility] W Mary Jo TELEPHONE EXCHANGE OPERATOR-C Unavailable Unavailabl e Cassie, [facility] W Mary Jo TELEPHONE EXCHANGE OPERATOR-C Unavailable Unavailabl e Chikis, A Monica TELEPHONE EXCHANGE OPERATOR Unavailable Unavailable Chikis, A Monica TELEPHONE EXCHANGE OPERATOR Unavailable Unavailable Chikis, A Monica TELEPHONE EXCHANGE OPERATOR Unavailable Unavailable Chikis, A Monica TELEPHONE EXCHANGE OPERATOR Unavailable Unavailable Chikis, A Monica TELEPHONE EXCHANGE OPERATOR Unavailable Unavailable Chikis, A Monica TELEPHONE EXCHANGE OPERATOR Unavailable Unavailable Chikis, A Monica TELEPHONE EXCHANGE OPERATOR Unavailable Unavailable Chikis, A Monica TELEPHONE EXCHANGE OPERATOR Unavailable Unavailable Chikis, A Monica TELEPHONE EXCHANGE OPERATOR Unavailable Unavailable Chikis, A Monica TELEPHONE EXCHANGE OPERATOR Unavailable Unavailable Chikis, A Monica TELEPHONE EXCHANGE OPERATOR Unavailable Unavailable Chikis, A Monica TELEPHONE EXCHANGE OPERATOR Unavailable Unavailable Chikis, A Monica TELEPHONE EXCHANGE OPERATOR Unavailable Unavailable Chikis, A Monica TELEPHONE EXCHANGE OPERATOR Unavailable Unavailable Chikis, A Monica TELEPHONE EXCHANGE OPERATOR Unavailable Unavailable Chikis, A Monica TELEPHONE EXCHANGE OPERATOR Unavailable Unavailable Chikis, A Monica TELEPHONE EXCHANGE OPERATOR Unavailable Unavailable Chikis, A Monica TELEPHONE EXCHANGE OPERATOR Unavailable Unavailable Chikis, A Monica TELEPHONE EXCHANGE OPERATOR Unavailable Unavailable Chikis, A Monica TELEPHONE EXCHANGE OPERATOR Unavailable Unavailable Chikis, A Monica TELEPHONE EXCHANGE OPERATOR Unavailable Unavailable Chikis, A Monica TELEPHONE EXCHANGE OPERATOR Unavailable Unavailable Chikis, A Monica TELEPHONE EXCHANGE OPERATOR Unavailable Unavailable Chikis, A Monica TELEPHONE EXCHANGE OPERATOR Unavailable Unavailable Chikis, A Monica TELEPHONE EXCHANGE OPERATOR Unavailable Unavailable Chikis, A Monica TELEPHONE EXCHANGE OPERATOR Unavailable Unavailable Chikis, A Monica TELEPHONE EXCHANGE OPERATOR Unavailable Unavailable Chikis, A Monica TELEPHONE EXCHANGE OPERATOR Unavailable Unavailable Chikis, A Monica TELEPHONE EXCHANGE OPERATOR Unavailable Unavailable Chikis, A Monica TELEPHONE EXCHANGE OPERATOR Unavailable Unavailable Chikis, A Monica TELEPHONE EXCHANGE OPERATOR Unavailable Unavailable Chikis, A Monica TELEPHONE EXCHANGE OPERATOR Unavailable Unavailable Chikis, A Monica TELEPHONE EXCHANGE OPERATOR Unavailable Unavailable Chikis, A Monica TELEPHONE EXCHANGE OPERATOR Unavailable Unavailable Chikis, A Monica TELEPHONE EXCHANGE OPERATOR Unavailable Unavailable Chikis, A Monica TELEPHONE EXCHANGE OPERATOR Unavailable Unavailable Chikis, A Monica TELEPHONE EXCHANGE OPERATOR Unavailable Unavailable Chikis, A Monica TELEPHONE EXCHANGE OPERATOR Unavailable Unavailable Chikis, A Monica TELEPHONE EXCHANGE OPERATOR Unavailable Unavailable Chikis, A Monica TELEPHONE EXCHANGE OPERATOR Unavailable Unavailable Chikis, A Monica TELEPHONE EXCHANGE OPERATOR Unavailable Unavailable Chikis, A Monica TELEPHONE EXCHANGE OPERATOR Unavailable Unavailable Chikis, A Monica TELEPHONE EXCHANGE OPERATOR Unavailable Unavailable Chikis, A Monica TELEPHONE EXCHANGE OPERATOR Unavailable Unavailable RUIZ SR, IRMA CUELLAR MD [...] is protected by Article 27-F of the [facility] Public Health law. If you continue you may have access to information: Regarding HIV / AIDS; Provided by facilities licensed or operated by the [facility] Office of Mental Health; or Provided by the [facility] Office for People With Developmental Disabilities. If such information is present, then the following [facility] mandated warning applies: This information has been [...] law may result in a fine or skilled nursing sentence or both. A general authorization for the release of medical or other information is NOT sufficient authorization for further disc losure. Allergies and Adverse Reactions Type Description Substance Reaction Status Data Source(s ) Drug allergy Steri-Strip Drug allergy blisters Active eCW1 ([facility]) Sulfacet-R Sulfacet-R Sulfacet-R n and v Active eCW1 ([facility]) Chemical ADHESIVE TAPE ADHESIVE TAPE [facility] Family History Family Member Name Family Member Gender Family Member Status Date o f Status Description Data Source(s) Unknown Male Problem MEDENT ([facility], ) Unknown Unknown Problem MEDENT ([facility], ) Unknown Male Problem MEDENT ([facility] ) Unknown Unknown Encounters Encounter Providers Location Date Indications Data Source(s ) Outpatient Attender: Asuncion Triplett NP 06/24/2020 12:00:00 AM [facility] Outpatient Attender: Monica Diop FNPReferrer: Monica [facility]MAN [facility] 05/31/2020 07:04:00 AM EST - 05/31/2020 07:04:00 AM [facility] Outpatient [facility] 05/31/2020 12:00:00 AM EST eCW1 ([facility]) Outpatient [facility] 05/03/2020 12:00:00 AM EST eCW1 ([facility]) Outpatient Attender: MOJGAN MCKNIGHT MDReferrer: Linsey RUIZ SR [id number] 03/21/2020 01:07:49 PM EST [facility] Outpatient Attender: MOJGAN MCKNIGHT MDReferrer: Linsey DEB RUIZ [id number] 03/21/2020 04:41:38 AM EST [facility] Outpatient Attender: POLO RUIZ SRReferrer: SHIRA SMALL 10/29/2019 01:38:00 PM EDT - 10/29/2019 01:38:00 PM EDT [facility] Outpatient Attender: POLO RUIZ SR 10/29/2019 01:00:00 PM EDT [facility] Outpatient [facility] 10/29/2019 12:00:00 AM EDT eCW1 ([facility]) Outpatient Attender: POLO RUIZ SRReferrer: SHIRA MARAVILLA EMERGENCY ROOM-LAB 10/28/2019 10:49:00 AM EDT - 10/28/2019 10:49:00 AM EDT [facility] C ENTER 10/01/2019 12:00:00 AM EDT eCW1 ([facility]) [facility] C ENTER 09/22/2019 12:00:00 AM EDT eCW1 ([facility]) Outpatient 09/15/2019 01:00:00 PM EDT [facility] Outpatient 07/21/2019 01:15:00 PM EST [facility] C ENTER 07/20/2019 12:00:00 AM EST eCW1 ([facility]) Outpatient Attender: Mary Jo SHIPMAN-CReferrer: SHIRA CASTILLO EMERGENCY ROOM-LAB REF 06/26/2019 01:13:00 PM EST - 06/26/2019 01:13:00 PM ES T [facility] Outpatient Attender: Mary Jo MARTINEZ 06/26/2019 01:00:0 0 PM EST [facility] 0 12:00:00 AM EST eCW1 ([facility]) Outpatient Attender: Asuncion Triplett NP 06/26/2019 12:00:00 AM [facility] Outpatient Attender: Asuncion Triplett NP 06/23/2019 12:00:00 AM [facility] Outpatient Attender: Asuncion Triplett NP 06/23/2019 12:00:00 AM [facility] Outpatient Attender: Asuncion Triplett NP [id number] 06/19/2019 12 :00:00 AM EST Genetic susceptibility to malignant neoplasm of ovary [facility] 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 Outpatient Attender: Pretty William MD [email or web address] 10/2018 12:00:00 AM EST [facility] Outpatient Attender: SINDY RUBIO MD 04/23/2019 05:14:4 7 PM EST [facility] Outpatient Attender: SINDY RUBIO MD 04/23/2019 03:42:0 0 PM EST PRETESTING [facility] PRETESTING Outpatient Attender: SHIRA BRANHAMReferr er: SHIRA BRANHAM EMERGENCY ROOM-LAB 01/09/2019 12:21:00 PM EDT - 01/09/2019 12:21:00 PM [facility] Outpatient Attender: POLO RUIZ SR 01/09/2019 11:30:00 AM [facility] Immunizations Vaccine Date Status Description Data Source(s) This CVX code allows reporting of a vacc ination when formulation is unknown (for example, when recording a Influenza vaccination when noted on a vaccination card) 05/18/2019 12:00:00 AM EST completed Influenza, Unspecified 05/18/[address] [place] [address] Medications Medication Brand Name Start Date Product [...] 03/16/2019 12:00:00 AM EDT ORAL completed MEDENT (MACHINE CANDLE [facility]) 75 mcg 08/07/2018 12:00:00 AM EDT tablet 30 TAKE ONE TABLET BY MOUTH EVERY MORNING ON AN EMPTY STOMACH TAKE ONE TABLET BY MOUTH EVERY MORNING O N AN EMPTY STOMACH SOLD: 08/02/2019 [facility] Insurance Providers Payer name Policy type / Coverage type Policy ID Covered republican ID Covered republican's relationship to alvarado Policy [place] Plan Information RAIN CHEN [id number] SP [id number] UMR [facility] [id number] SP [id number] UMR [id number] S [id number] UMR [id number] S [id number] Umr Primary [id number] UMR [id number] S [id number] UMR U [id number] Self [id number] UMR HEA [id number] S [id number] UMR [id number] Ximena [id number] UMR O [id number] S [id number] UMR [id number] S [id number] UMR [id number] S [id number] Umr Commercial [id number] Self [id number] ANSI-Commercial [id number] ANSI-Commercial [id number] ANSI-Commercial [id number] ANSI-Commercial [id number] ANSI-Commercial [id number] ANSI-Commercial [id number] UMR [facility] [id number] SP [id number] UMR -O/P [id number] 18 [id number] UMR [id number] S [id number] UMR [id number] S [id number] [employer] [id number] Ximena [id number] UMR HEA [id number] S [id number] ANSI-Commercial [id number] ANSI-Commercial [id number] [employer] (pr) [facility] Part B [id number] Self [id number] Umr (pr) Commercial [id number] Se lf [id number] [employer] ([place]) Workers Compensation [id number] Self [id number] SELF PAY UNAVAILABLE S UNAVAILA BLE [employer] [id number] SP [id number] [employer] (pr) [employer] Part B [id number] Self [id number] Umr (pr) Commercial [id number] Se lf [id number] [employer] (pr) [employer] Part B [id number] Self [id number] Umr (pr) Commercial [id number] Se lf [id number] [employer] [id number] S [id number] [employer] (pr) [employer] Part B [id number] Self [id number] [employer] ([place]) Workers Compensation [id number] Self [id number] Umr (pr) Commercial [id number] Se lf [id number] [employer] (pr) [employer] Part B [id number] Self [id number] [employer] ([place]) Workers Compensation [id number] Self [id number] [employer] (pr) [employer] Part B [id number] Self [id number] [employer] ([place]) Workers Compensation [id number] Self [id number] [employer] (HMO) [id number] Se lf [id number] [employer] (pr) [employer] Part B [id number] Self [id number] [employer] ([place]) Workers Compensation [id number] Self [id number] [employer] (pr) [employer] Part B [id number] Self [id number] [employer] ([place]) Workers Compensation [id number] Self [id number] [employer] (HMO) [id number] Se lf [id number] [employer] (pr) [employer] Part B [id number] Self [id number] [employer] ([place]) Workers Compensation [id number] Self [id number] ONE CALL CARE MANAGEMENT O [id number] S [id number] [employer] PPO O [id number] S [id number] [employer] [id number] MO2 [id number] [employer] COMM SELF [id number] S [id number] [employer] [id number] SP [id number] SELF PAY SP [id number] S [id number] [employer] -O/P [id number] 18 [id number] [employer] Commercial Self [id number] Problems, Conditions, and Diagnoses Code Display Name Description Problem Type Effective Dates Data Source(s) R03.0 Elevated blood-pressure reading, without diagnosis of hypertension ELEVATED BLOOD-PRESSURE READING, W/O JOSE Diagnosis 05/31/2020 07:04:00 AM [facility] E55.9 Vitamin D deficiency, unspecified VITAMIN D DEFI CIENCY, UNSPECIFIED Diagnosis 05/31/2020 07:04:00 AM [facility] Z13.220 Encounter for screening for lipoid disor ders ENCOUNTER FOR SCREENING FOR LIPOID DISOR Diagnosis 05/31/2020 07:04:[address] 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 Diagnosis 06/19/19 20 10:23:38 AM [facility] Z01.810 Encounter for preprocedural cardiovascul ar examination Encounter for preprocedural cardiovascul Diagnosis 04/24/2019 02:59:31 PM [facility] R06.02 Shortness of breath Shortness of breath Diagnosis 1 06/25/2018 02:59:31 PM EST [facility] R00.2 Palpitations Palpitations Diagnosis 04/24/2019 02:59:31 P M EST [facility] R07.89 Other chest pain Other chest pain Diagnosis 04/24/2019 02 :59:31 PM EST [facility] Surgeries/Procedures Procedure Description Date Indications Data Source(s) Lap W/Hysterectomy W/REM Tube&Ovaries Uterus 250GMS Or Less 05/04/2019 12:00:00 AM EST MEDENT (MACH[facility] C[facility]LE [facility]) Results ID Date Data Source [id number] 06/01/2020 08:06:00 AM EST [facility] Name Value Range Interpretation Code Description Data Kamala rce(s) Supporting Document(s) Vitamin D, 25-Hydroxy 74.5 ng/mL 30.0-100.0 [facility] Vitamin D deficiency has been defined by the [place] of[employer] and an Endocrine Society practice guideline as alevel of serum 25-OH vitamin D less than 20 ng/mL (1,2).The Endocrine Society went on to further define vitamin Dinsufficiency as a level between 21 and 29 ng/mL (2).1. IOM ([place] of [employer]). 2010. Dietary reference intakes for calcium and D. [place]: The National Academies Press.2. Dulce MF, Kishore NC, Simran CRUZ, et al. Evaluation, treatment, and prevention of vitamin D deficiency: an Endocrine Society clinical practice guideline. JCEM. 2010; 96(7):1911-30. ID Date Data Source [id number] 06/01/2020 08:06:00 AM EST [facility] Name Value Range Interpretation Code Description Data Kamala rce(s) Supporting Document(s) VITAMIN D, 25-HYDROXY 74.5 ng/mL 30.0-100.0 [facility] Vitamin D deficiency has been defined by the [place] of[place] and an Endocrine Society practice guideline as alevel of serum 25-OH vitamin D less than 20 ng/mL (1,2).The Endocrine Society went on to further define vitamin Dinsufficiency as a level between 21 and 29 ng/mL (2).1. IOM ([place]). 2010. Dietary reference intakes for calcium and D. [place]: The National Academies Press.2. Dulce MF, Kishore MELENDEZ, Simran CRUZ, et al. Evaluation, treatment, and prevention of vitamin D deficiency: an Endocrine Society clinical practice guideline. JCEM. 2010; 96(7):1911- 30.Performed at: RN - [facility] [address] [id number] Director: Germaine Rebollar MD, Phone: [phone] ID Date Data Source [id number] 05/31/2020 08:03:[address] [facility] Name Value Range Interpretation Code Description Data [facility] rce(s) Supporting Document(s) MAGNESIUM 2.2 mg/dL 1.8-2.4 [facility] ID Date Data Source [id number] 05/31/2020 08:03:00 AM [facility] l Name Value Range Interpretation Code Description Data [facility] rce(s) Supporting Document(s) GLUCOSE 82 mg/dL 74-106 [facility] BLOOD UREA NITROGEN 27 mg/dL 7-18 [facility] ital CREATININE 0.84 mg/dL 0.6-1.0 [facility] SODIUM 143 mmol/L 136-145 [facility] POTASSIUM 3.9 mmol/L 3.5-5.1 [facility] CHLORIDE 104 mmol/L 98-107 [facility] CO2 30 mmol/L 21-32 [facility] CALCIUM 9.3 mg/dL 8.5-10.1 [facility] ANION GAP 9.0 mmol/L 5-12 [facility] GLOMERULAR FILTRATION RATE 73 mL/min [facility] GFR IS CALCULATED IN mL/min/1.73m2 SOO L FUNCTION: >90MILDLY DECREASED: 60-89MILDY TO MODERATELY DECREASED: 45-59 MODERATELY TO SEVERELY DECREASED: 30-44SEVERELY DECREASED: 15-29RENAL FAILURE: <15 AST 17 U/L 15-37 [facility] ALT 23 U/L 12-78 [facility] ALKALINE PHOSPHATASE 69 U/L 46-116 [facility] pital TOTAL BILIRUBIN 0.9 mg/dL 0.2-1.0 [facility] TOTAL PROTEIN 7.1 g/dl 6.4-8.2 [facility] ALBUMIN 4.0 gm/dL 3.4-5.0 [facility] ID Date Data Source [id number] 05/31/2020 08:03:00 AM EST [facility] Name Value Range Interpretation Code Description Data Kamala rce(s) Supporting Document(s) CHOLESTEROL 188 mg/dL 0-200 [facility] TRIGLYCERIDES 29 mg/dL 0-150 [facility] LDL CHOLESTEROL 99 mg/dL 0-100 [facility] HDL CHOLESTEROL 83 mg/dL 40-60 H [facility] CHOL/HDL RATIO 2.3 0.0-5.0 [facility] ID Date Data Source [id number] 05/31/2020 07:49:00 [facility] Name Value Range Interpretation Code Description Data Kamala rce(s) Supporting Document(s) FREE T4 1.2 ng/dL 0.76-1.46 [facility] ID Date Data Source [id number] 05/31/2020 07:49:00 AM [facility] l Name Value Range Interpretation Code Description Data Kamala rce(s) Supporting Document(s) TSH 5.251 uIU/mL 0.36-3.74 H [facility] ID Date Data Source [id number] 05/31/2020 07:16:00 AM [facility] l Name Value Range Interpretation Code Description Data Kamala rce(s) Supporting Document(s) WHITE BLOOD COUNT 4.2 K/mm3 4.0-10.0 [facility] al RED BLOOD COUNT 4.66 M/mm3 4.00-5.50 [facility] HEMOGLOBIN 13.2 gm/dL 12.0-16.0 [facility] HEMATOCRIT 37.8 % 36.0-48.8 [facility] MEAN CELL VOLUME 81.1 fl 80-96 [facility] MEAN CORPUSCULAR HEMOGLOBIN 28.3 pg 27.0-31.0 [facility] MEAN CORPUSCULAR HGB CONC 34.9 g/dl 32.0-36.0 [facility] RED CELL DISTRIBUTION WIDTH 12.6 % 10.0-14.5 [facility] PLATELET COUNT 177 K/mm3 172-450 [facility] MEAN PLATELET VOLUME 10.5 fl 9.0-13.0 [facility] pital GRAN % 59.3 % 50-80.0 [facility] IG% 0.0 % 0.0-0.2 [facility] LYMPH % 30.3 % 25.0-50.0 [facility] MONO % 7.5 % 2.0-10.0 [facility] EOS % 2.4 % 0-5.0 [facility] BASO % 0.5 % 0.0-2.0 [facility] GRAN # 2.5 K/mm3 2.0-8.00 [facility] IG# 0.0 K/mm3 0.0-0.2 [facility] LYMPH # 1.3 K/mm3 1.0-5.0 [facility] MONO # 0.3 K/mm3 0.10-1.20 [facility] EOS # 0.1 K/mm3 0.0-0.5 [facility] BASO # 0.0 K/mm3 0.0-0.2 [facility] ID Date Data Source [id number] 10/29/2019 02:03:00 PM EDT [facility] DATE OF EXAMINATION: 10/29/2019 13:43 EDT TECHNIQUE: [...] rce(s) Supporting Document(s) ID Date Data Source [id number] 10/28/2019 12:33:00 PM EDT [facility] Name Value Range Interpretation Code Description Data Kamala rce(s) Supporting Document(s) TSH 1.21 uIU/mL 0.36-3.74 [facility] ID Date Data Source [id number] 09/15/2019 03:33:00 PM EDT [facility] EXAM: Bone scan CLINICAL HISTORY: RIB PA [...] rce(s) Supporting Document(s) ID Date Data Source [id number] 09/15/2019 03:42:27 PM EDT [facility] [facility] Name Value Range Interpretation Code Description Data Kamala rce(s) Supporting Document(s) CA 125 @ 12.2 U/mL (<30.2) [facility] [place] [facility] ASSAY BY IMMUNOCHEMILUMINOMETRIC ASSAYON THE ADVIA ZayanteAUR XPT. VALUESOBTAINED WITH DIFFERENT METHODS OR KITSCANNOT BE USED INTERCHANGEABLY FOR PATIENTMONITORING. RESULTS CANNOT BE INTERPRETEDAS ABSOLUTE EVIDENCE OF THE PRESENCE ORABSENCE OF MALIGNANCY. THE TEST IS NOTINTERPRETABLE IN . ID Date Data Source [id number] 07/21/2019 01:49:00 PM EST [facility] o[facility] [...] and tissue expanders. Professional interpretation performed at [facility] [place] . Name Value Range Interpretation Code Description Data Kamala rce(s) Supporting Document(s) ID Date Data Source [id number] 06/26/2019 01:40:00 PM EST [facility] Name Value Range Interpretation Code Description Data Kamala rce(s) Supporting Document(s) INFLUENZA A NEGATIVE NEGATIVE [facility] INFLUENZA B NEGATIVE NEGATIVE [facility] This is a rapid molecular in vitro diagn ostic test utilizingan isothermal nucleaic acid amplification technology for thequalitative detection and discrimination of influenza A andB viral RNA. Negative results do not preclude influenzavirus infection and should not be used as the sole basis fordiagnosis, treatment or other patient management decisions. ID Date Data Source INFLUENZA A,B PCR 06/26/2019 12:00:00 AM EST eCW1 ([facility]) Name Value Range Interpretation Code Description Data Kamala rce(s) Supporting Document(s) NEGATIVE NEGATIVE INFLUENZA A eCW1 ([facility]) NEGATIVE NEGATIVE INFLUENZA B eCW1 ([facility]) ID Date Data Source [id number] 06/19/2019 10:25:51 AM EST [facility] Name Value Range Interpretation Code Description Data Kamala rce(s) Supporting Document(s) Progress Note [facility] JKVVHs1tTgBZQiCk81/PNHwqZTPzr2HdYLvgZJc0EHnbXEXwQ9XjPMP4bF5yCIR1VHdTKrMpTqXaMIRw m [file] ICAgICAgICAgICAgICAgICAgICAgICAgICAgICAgIC AvIJMqYHEaXMDjFXQlDKXaQMKiCUHaYHVdDLHtBBKtVGZzOGIvGE8GWTTxVTNlNWVoTBMmUPRuTBAjUF AgICAgICAgICAgICAgICAgICAgICAgICAgICAgICAgICAgICAgICAgICAgICAgICAgICAgICAgICAgIC AuGRYzDJAvGHLpPAVdIGLlOLNkDC7CLJEvJLHxQCWl ICAgICAgICAgICAgICAgICAgICAgICAgICAgICAgICAgICAgICAgICAgICAgICAgICAgICAgICAgICAg DDByZRDaUFIjKQSmILQhEFIlANMxUAGhJCCyRJXeUK5OYTKsMDCzLFRmXYRnFHKtGWHyDAIcBWZuWEXi ICAgICAgICAgICAgICAgICAgICAgICAgICAgICAgIC BqKCAvGPZcRWJlMOSgDQBgOBGlVJSsETYgCWGbZAYkBNViCDXrNICjRV4ODCPdADAyCMIjUJAfMFPcRR AgICAgICAgICAgICAgICAgICAgICAgICAgICAgICAgICAgICAgICAgICAgICAgICAgICAgICAgICAgIC WjYGCiDDVpIZMkSXAySFFaTQWyGCNfSG4RCIHhIFDz ICAgICAgICAgICAgICAgICAgICAgICAgICAgICAgICAgICAgICAgICAgICAgICAgICAgICAgICAgICAg FZFjBHBySFNwTCTpUMDwUSWnFKEbWJZkJJLgJVPnZJXgMG4RJSKdKXThIBNdUCAeWNHlZDIwBXBxZXQr ICAgICAgICAgICAgICAgICAgICAgICAgICAgICAgIC FaNRWyKQKhIOVwXZTbJWOlYUVbUGPvFFYoAFEwSIQbZCVaGKKkPUPbZXKdWD7FLLRoWFXaJQZiUVYyMN AgICAgICAgICAgICAgICAgICAgICAgICAgICAgICAgICAgICAgICAgICAgICAgICAgICAgICAgICAgIC QiTVOnVWZySAPyZKCfDPMoTKOkKQWxDYQaMX6CCCLk ICAgICAgICAgICAgICAgICAgICAgICAgICAgICAgICAgICAgICAgICAgICAgICAgICAgICAgICAgICAg ROKgSOQgMUYwHYGvQWNbBLYsLUSbLYVpAUCzKBGxDZTeDEXnUC7LEPHdFPYvCXGzBIViERIyLIUfVOTm ICAgICAgICAgICAgICAgICAgICAgICAgICAgICAgIC PwHBFbGVHaASTwOPKyIBQpQXPlCVNlFOQjTQQnODYbCJQdQUJhJXPbLZVgVBDyQJ4MHH33hODdv1C7TD XgIO9bnzr/On3BNUtzjwVagTNcXW3MZjRzMT8qfj4GWvEmGX9ptp1HLSnQTuJsO5L5cNKuXRWhVCLWNi LjV24iREikGs40VNiwXHUvMcYxKBp6Wg5TGfAdB9sb BNEgOuZ2RGOmAcP9BUCuShQ8YVOkDkFuTYitAU6Kp3MfmFScYSz+Ed5APK3sr3GmNJtsCuOqBL3zkw1S DRyJIdAvN0BihwL1VMT3PPQyDm8YFPKgXKJvqBIpBrClREEGJwIsX5DfzY32BAIFZn2+DQplbmRvYmoN PfP4PLFfc3YnUWi0TY8KMKAoKHj7bTQdTMWlQ5Lwf9 YdGv77ZSWrIensT9T6QT2bSMRSCOJlzTOiswqtSrHiZDQsXT9sOX8zQGMbWYD3QiZnNYHCUG0AJNQrXF BbtURyVGWoPIFAAA0EFSqyRXX4MPFttjMrcXJoNUrsNF4QRSKpwyBdJuSmSOMUCBd+Ky7RWG5ke8RiKZ ieJFZcRQ0fzq3CRHeAJkNiP1X1jODyV8E6EKjlZc7K OWUfIIRxLtXkRTPSCRbkGF9YQL1gioI9LW1MhJIeZDOiQQNudDZhODy3D45egGEcHOmjNS7HQGW+Reji+ Yf9OVICdOIBpUXFsVcKmDSATZwHuE5YwO0ENx0WzI4HxVF64aHilecPzHGulRR3CWJ3iXXQnBBKEVK8D zHCdnS3cujVeNxVjJMTWFkJoW52omLChDNFmQGN2NW HgWx7TLVTsJ4MtxaNlvJoiqnAfSHJdXVGRNP5MEHjhafChoUIkpUlsAN57eNkwWC6TXh0NNsOoLH2ugh 4FjFQkKx4DZUAgZT8STOElZXAeABAqMGK7MFSmQtXwLBvzUFOdUYLtNEW5EZIuVNBfOI9WHgOkPAGuAf l8CWEpBBOvVRMlig6FDGGwHRC3DQZ0WZXuZQPrONGz YPbcBHFvMNJeANA6LFJnFAWpAC9ZDgKcLLEaHQDdMUTtYQBjHJFpvo3MMMCnJJSfQvBpFnZpGMIeJPOx WRnwGIHbNQY0BvW3FZJwCVTqIR9USlTnGLVlFOK7ZwLuDOXhFEQkpc3HLCUnRENlFrL8AtZcETFeURZi NVmfKEIpQCZ6SRxkOTVtOAJwNX9DWtVfQARfRFn0Op GlQGWtLUAcbh2QEJLvTTWiBIHdYEFcMGSsRHEbBQxhUVVyBTZ0CaJoFAEtIMIpUM2ABpEbXBKaWEgsTt UvCAQyGYEemq9XASIrGIPlOIV3ZzBvGOIoMTAvNDksVKBaEDP7LQKwJYPrWJBhGC6UVxRaLZGiRbF9YA SoAIVyOSYwwj9SYIDnHHBwBcH8XNDyICFnXXCuUJoa JHLhDGK4RyZ6QBBhWKTcJX2UUqEhYRIyGml1CyCqOLHiFAUcer0SPXWjRDYeWZQ8VINvJBXlFKZyNKzm DLUxGVN3WZP4JXGhDJAnFO5JGmQlIWFnJewrIRDqDOLbZJNoxm3QTIUiNNZdGHD1ZFVlNJWyOXXhMBta XIUrZIX1IMN5EAGpNBJcVP6DRlNiKABhQCUvZOifJP PbIKVquu2XEDIdPKK1OADxZKYpGMVtBAQvCZqkMVHaISNeLEyxADOsGIQkRQ6OXpJrTTrjLWQAAio6CA edX3c8MHZcSH8LV2Tvs3UpYepkAJVKORiiZF9zqyNqXRKuGh1TP6rQEag0IZX2UNZiE3SpWDq3MnMnUq KwMKPvZMLaIfSyKmFuWo4dLBQlSYaqDeKpXuP9ZHnk YdLxANL9BcX0YqWcKNQ9PAN5MoNbKG8FIr9NEdG5HTQ1dARgFx5VPRU9JnPONgFkVO0CMCp= ID Date Data Source [id number] 05/05/2019 06:38:02 AM EST [facility] Name Value Range Interpretation Code Description Data Kamala rce(s) Supporting Document(s) WBC 7.2 10*3/uL (4.1-11.0) [facility] [place] [facility] [place] RBC 4.45 10*6/uL (4.00-5.40) [facility] HGB 12.0 g/dL (12.0-16.0) [facility] HCT 36.3 % (36.0-47.0) [facility] PERFORMED AT [address] [facility] [address] MCV 81.5 fL (80.0-95.0) [facility] MCH 27.0 pg (27.0-32.0) [facility] MCHC 33.1 g/dL (32.0-36.0) [facility] RDW 15.6 % (10.5-14.5) H [facility] PLT 199 10*3/uL (150-450) [facility] MPV 8.9 fL (7.1-10.7) [facility] ID Date Data Source [id number] 05/11/2019 10:45:16 AM EST [facility] [place], [place] [address]Tel# SURGICAL PATHOLOGY REPORTPatient Name:JOSE EDUARDO HEIN:1975Received:05/04/2019Accession #:[id number](s) Received: A: Uterus, cervix, bilateral tube (remnants) [...] lumen surrounded by a homogeneous, intact, medina-pinkwall. Resident Advisor sections are submitted for microscopic examinationas follows: AC/PC anterior/posterior cervix; AE/PE anterior/posteriorendomyometrium; S adipose tissue and serosa in its entirety; N representative phlebotomy services section of nodule; RO and RTO right ovary in its entiretyto include sections of probable tube; LO and LTO left ovary in itsentirety to include possible sections of tube. (11 blocks) jzwjen/sgbProcessed at [facility], Histopathology, [address] [place] [address], [phone]. Reported at [facility] at [facility], [address] [place] [address], [phone].Reported: 05/11/2019Electronically Signed Out By Windy Sousa D.O. [facility]This report may include immunohistochemical or in-situ hybridizationresults. Testing was developed and the performance characteristicsdetermined by [facility] as required by CLIA '88. The FDAhas determined that approval for specific use is not necessary forclinical use. The quality of Hematoxylin and Eosin stains and asapplicable, for all immunohistochemical and/or special stains, includingpositive and negative controls, were reviewed and considered appropriate.ICD codes: Z15.02CPT4 codes: A: 02473F Name Value Range Interpretation Code Description Data Kamala rce(s) Supporting Document(s) ID Date Data Source [id number] 05/08/2019 12:56:00 PM [facility] DEBBI [id number] [place] [place], [place] [address]DTRLVQO NAME: JOSE EDUARDO HEINDATE OF : 1975REPORT: OPERATIONPATIENT NUMBER: [id number] STATUS: SDMEDICAL RECORD NUMBER: [id number] OF ADMISSION: 05/04/2019DATE OF DISCHARGE:ROOM: 02DATE OF PROCEDURE: 05/04/2019PREOPERATIVE DIAGNOSIS: BRCA1 mutation.POSTOPERATIVE DIAGNOSIS: BRCA1 mutation.OPERATION PERFORMED: Laparoscopic hysterectomy, bilateralsalpingo-oophorectomy with da Jai robotics.SURGEON: Sindy Rubio MDASSISTANT: MARGARET Driscoll; resident Shweta Fontenot MD (not qualifiedto offset assistant press operator).ANESTHESIA: General.ESTIMATED BLOOD LOSS: 75 mL.TUBES AND DRAINS: [...] The uterus sounded to 8cm and a ihijiare uterine manipulator was inserted in the endometrial [...] Marcaine, three da Jai ports and 12-mm animal care assistant port were inserted. Washings wereobtained. The patient was placed in steep Trendelenburg and the da Vinciwas docked. The remainder of the procedure was performed through the [employer] robotic system. The right round ligament was [...] recovery room in stable condition.DICTATED BY: SHAD Huhgesictated: 05/04/2019 9:58DT: 05/04/2019 10:02Job #: [id number]: [facility] computer generated reports are not confirmed orauthenticated unless they are signed by the providerElectronically Authenticated by:SINDY RUBIO MD On 05/08/2019 12:56 PM EST Name Value Range Interpretation Code Description Data Kamala rce(s) Supporting Document(s) ID Date Data Source [id number] 05/06/2019 06:58:18 AM EST [facility] [place] [facility] [address] [place], [place] [address]Dxg# MISCELLANEOUS CYTOLOGY REPORTAccession #: [id number] Specimen(s): A: Pelvic WashingClinical Diagnosis and History: Genetic susceptibility to ovarian caGross DescriptionPelvic Washin cc clear colorless fluid. Final DiagnosisSpecimen AdequacySatisfactoryFinal DiagnosisNEGATIVE FOR MALIGNANCY Mesothelial cells and histiocytes.Processed and screenAs applicable, positive and negative controls for all immunohistochemicaland/or special stains were reviewed and considered appropriate. Reported: 05/06/2019 06:56Electronically Signed Out By Windy Sousa D.O.Pathology AssociatesCytotechnologist: Tana KOCH(ASCP)[facility] VaughnRebeccamejia ICD Code: Z15.02 CPT Code: A: 14449K Name Value Range Interpretation Code Description Data Kamala rce(s) Supporting Document(s) ID Date Data Source [id number] 04/23/2019 08:56:24 PM EST [facility] Name Value Range Interpretation Code Description Data Kamala rce(s) Supporting Document(s) CA 125 @ 12.6 U/mL (<30.2) [facility] ASSAY BY IMMUNOCHEMILUMINOMETRIC ASSAYON THE ADVIA ZayanteAUR XPT. VALUESOBTAINED WITH DIFFERENT METHODS OR KITSCANNOT BE USED INTERCHANGEABLY FOR PATIENTMONITORING. RESULTS CANNOT BE INTERPRETEDAS ABSOLUTE EVIDENCE OF THE PRESENCE ORABSENCE OF MALIGNANCY. THE TEST IS NOTINTERPRETABLE IN . ID Date Data Source [id number] 04/23/2019 07:14:48 PM EST [facility] SPEC EXP DATE 05/07/2019PATI ENT ABO/Rh O NEGATIVEANTIBODY SCREEN NEGATIVETESTING SITE PERFORMED AT [address] [place] [address] Name Value Range Interpretation Code Description Data Kamala rce(s) Supporting Document(s) ID Date Data Source [id number] 04/23/2019 05:35:54 PM EST [facility] Name Value Range Interpretation Code Description Data Kamala rce(s) Supporting Document(s) SODIUM 142 mmol/L (136-145) [facility] POTASSIUM 4.4 mmol/L (3.6-5.2) [facility] CHLORIDE 105 mmol/L (100-108) [facility] CO2 31 mmol/L (22-31) [facility] ANION GAP 6 mmol/L (7-16) L [facility] UREA NITROGEN 23 mg/dL (7-24) [facility] CREATININE 0.91 mg/dL (0.60-1.00) [facility] BUN/CREAT RATIO 25.3 RATIO (10.0-20.0) H [facility] GLUCOSE 87 mg/dL (70-99) [facility] CALCIUM 9.5 mg/dL (8.4-10.2) [facility] GFR >60 ml/min/1.73m2 (>59) [facility] GFR ( AMER) >60 ml/min/1.73m2 (>59) [facility] GFR INTERPRETATION [facility] --NORMAL KIDNEY FUNCTION OR MILD DISEASE - GFR >OR= 60CHRONIC KIDNEY DISEASE - GFR 15 - 59RENAL FAILURE - GFR <15 Est. GFR calculation based on the MDRDstudy equation, which assumes a steadystate for creatinine. Est. GFR should notbe used for medication dosing. ID Date Data Source [id number] 04/23/2019 05:14:46 PM EST [facility] Name Value Range Interpretation Code Description Data Kamala rce(s) Supporting Document(s) WBC 5.3 10*3/uL (4.1-11.0) [facility] [place] [facility] [place] RBC 4.94 10*6/uL (4.00-5.40) [facility] HGB 13.1 g/dL (12.0-16.0) [facility] HCT 39.8 % (36.0-47.0) [facility] PERFORMED AT [address] [facility] [address] MCV 80.6 fL (80.0-95.0) [facility] MCH 26.6 pg (27.0-32.0) L [facility] MCHC 32.9 g/dL (32.0-36.0) [facility] RDW 15.5 % (10.5-14.5) H [facility] PLT 224 10*3/uL (150-450) [facility] MPV 8.4 fL (7.1-10.7) [facility] Procedure Social History Code Duration Value Status Description Data Source(s ) Smoking 10/29/2019 12:00:00 AM EDT Never Smoker completed Never S moker eCW1 ([facility]) Smoking 10/29/2019 12:00:00 AM EDT Never Smoker completed Never S moker eCW1 ([facility]) Smoking 10/29/2019 12:00:00 AM EDT Never Smoker completed Never S moker eCW1 ([facility]) Alcohol intake 06/19/2019 12:00:00 AM EST Current non-d junior of alcohol (finding) completed Current non-drinker of alcohol (finding) [facility] Smoking 06/19/2019 12:00:00 AM EST Never smoker completed Never s [facility] Vital Signs ID Date Data Source UNK Name Value Range Interpretation Code Description Data Source(s) Oxygen saturation in Arterial blood by Pulse oximetry 99 % 99 % eCW1 ([facility]) Respiratory rate 18 /min 18 /min eCW1 ([facility]) Heart rate 80 /min 80 /min eCW1 ([facility]) Body temperature 98.6 [degF] 98.6 [degF] eCW1 ( [facility]) Body mass index (BMI) [Ratio] 27.90 kg/m2 27.90 kg/m2 eCW1 ([facility]) Body weight 155.0 [lb_av] 155.0 [lb_av] eCW1 ([facility]) Body height 62.5 [in_i] 62.5 [in_i] eCW1 ([facility]) Deprecated Oxygen saturation in Capillary blood by Oximetry 99 % 99 % eCW1 ([facility]) Respiratory rate 16 /min 16 /min eCW1 ([facility]) Heart rate 80 /min 80 /min eCW1 ([facility]) Body temperature 98.2 [degF] 98.2 [degF] eCW1 ( [facility]) Body mass index (BMI) [Ratio] 27.81 kg/m2 27.81 kg/m2 eCW1 ([facility]) Body weight Measured 154.54 [lb_av] 154.54 [lb_ av] eCW1 ([facility]) Body height 62.5 [in_us] 62.5 [in_us] eCW1 ([facility]) Body weight 76.205 kg 76.205 kg [facility] Body height 161.3 cm 161.3 cm [facility] Body mass index (BMI) [Ratio] 29.3 kg/m2 29.3 k g/m2 [facility] ([facility] Body surface area 1.81 m2 1.81 m2 [facility] ([facility] Body weight 168.00 [lb_av] 168.00 [lb_av] MEDEN T ([facility] Body height 63.5 [in_i] 63.5 [in_i] [facility] ([facility] 5'3.50" Respiratory rate 16 /min 16 /min [facility] ( [facility] Heart rate 81 /min 81 /min [facility] Diastolic blood pressure 74 mm[Hg] 74 mm[Hg] [facility] ([facility] Systolic blood pressure 105 mm[Hg] 105 mm[Hg] M EDENT ([facility] Body weight 75.751 kg 75.751 kg [facility] Body height 161.3 cm 161.3 cm [facility] ([facility] Body mass index (BMI) [Ratio] 29.1 kg/m2 29.1 k g/m2 [facility] ([facility] Body surface area 1.80 m2 1.80 m2 [facility] ([facility] Body weight 167.00 [lb_av] 167.00 [lb_av] MEDEN T ([facility] Body height 63.5 [in_i] 63.5 [in_i] [facility] ([facility]) 5'3.50" Respiratory rate 16 /min 16 /min [facility] ( [facility] ) Heart rate 102 /min 102 /min [facility] ([facility] ) Diastolic blood pressure 70 mm[Hg] 70 mm[Hg] [facility] ([facility]) Systolic blood pressure 129 mm[Hg] 129 mm[Hg] [facility] ID Date Data Source [id number] 06/19/2019 10:25:51 AM [facility] Name Value Range Interpretation Code Description Data Source(s) WEIGHT RECORDED 161 lb 161 lb [facility] Body height Measured 62 in 62 in [facility]
== END 2020-06-17 10:41 | disposition home or self-care (01) ==
LOC: M ED 09:32
DX: S13.4XXA Sprain of ligaments of cervical spine, initial encounter (principal); V47.5XXA Car driver injured in collision with fixed or stationary object in traffic accident, initial encounter; Y92.9 Unspecified place or not applicable; Y93.9 Activity, unspecified; Y99.9 Unspecified external cause status; Z88.1 Allergy status to other antibiotic agents; Z88.2 Allergy status to sulfonamides; Z79.899 Other long term (current) drug therapy

== ENCOUNTER → 2021-02-09 | Outpatient (REF) | payer OTHER ==
[~2021-02-09] MED LIST: CYCL-707 PO; LEVO75TA4 PO
== END ==
LOC: M LAB REF 13:55
PROVIDERS: ATTEND Physician Assistant
DX: B02.9 Zoster without complications (principal)

== ENCOUNTER 2023-04-11 10:29 | Emergency (ER) | payer OTHER ==
[~2023-04-11] VITALS: Ht 157.5 cm; Wt 83.6 kg
[2023-04-11] MEDS ORDERED: ESCI5SOL3 PO (10:38)
[2023-04-11] MEDS ORDERED: NS 1,000 ML IV ONE (11:30)
[2023-04-11] MEDS ORDERED: KETOROLAC 30 MG/ML 1ML VIAL IV ONE (11:30)
[2023-04-11] MEDS ORDERED: ONDANSETRON 4MG 2ML VIAL IV ONE (11:30)
[2023-04-11 12:07] LABS: BASO % 0.5 % (0.0-1.0); EOS # 0.1 10^3/uL (0.0-0.5); EOS % 2.3 % (0.0-3.0); HEMATOCRIT 43.1 % (36.0-47.0); HEMOGLOBIN 14.7 g/dl (12.0-15.5); LYMPH # 1.3 10^3/uL (1.5-5.0); LYMPH % 22.2 % (24.0-44.0); MEAN CORPUSCULAR HEMOGLOBIN 29.1 pg (27.0-33.0); MEAN CORPUSCULAR HGB CONC 34.1 g/dl (32.0-36.5); MEAN CORPUSCULAR VOLUME 85.3 fl (80.0-96.0); MONO # 0.4 10^3/uL (0.0-0.8); MONO % 5.9 % (2.0-8.0); NEUTROPHILS # 4.1 10^3/uL (1.5-8.5); NEUTROPHILS % 68.8 % (36.0-66.0); PLATELET COUNT, AUTOMATED 206 10^3/uL (150-450); RED BLOOD COUNT 5.05 10^6/uL (4.00-5.40)
[2023-04-11 12:28] LABS: BILIRUBIN,DIRECT 0.2 MG/DL (<0.4); BILIRUBIN,TOTAL 0.9 MG/DL (0.3-1.2); TOTAL PROTEIN 7.3 G/DL (5.7-8.2)
[2023-04-11 12:37] LABS: RSV AMPLIFICATION NEGATIVE (NEGATIVE)
[2023-04-11] MEDS ORDERED: ISOVUE-370 76% 100ML VIAL As Ordered ONE (12:50)
[2023-04-11] MEDS ORDERED: CIPROFLOXACIN 500MG TABLET PO ONE (14:35)
[2023-04-11] MEDS ORDERED: metroNIDAZOLE (FLAGYL) 500MG TABLET PO ONE (14:35)
[2023-04-11] MEDS ORDERED: CIPR-249 PO (14:36)
[2023-04-11] MEDS ORDERED: METR-265 PO (14:36)
[2023-04-11 14:49] VITALS: BP 124/74; TEMP 97.5; O2SAT 97
== END 2023-04-11 15:20 | disposition home or self-care (01) ==
LOC: M ED 10:29
DX: K52.9 Noninfective gastroenteritis and colitis, unspecified (principal); E05.90 Thyrotoxicosis, unspecified without thyrotoxic crisis or storm; Z85.3 Personal history of malignant neoplasm of breast; Z79.899 Other long term (current) drug therapy; Z88.2 Allergy status to sulfonamides; Z91.89 Other specified personal risk factors, not elsewhere classified
CPT/HCPCS: 74177; 80047; 80076; 83690; 84702; 85025; 87507; 87631; 96361; 96374; 96375; 99284; J1885; J2405; Q9967

== ENCOUNTER 2023-04-17 18:37 | Emergency (ER) | payer OTHER ==
[~2023-04-17] VITALS: Ht 157.5 cm; Wt 82.9 kg
[2023-04-17 18:37] VITALS: TEMP 98.1
[~2023-04-17 18:37] MED LIST changes: +CIPR-249 PO; +ESCI5SOL3 PO; +METR-265 PO
[2023-04-17 20:22] LABS: BASO # 0.1 10^3/uL (0.0-0.2); BASO % 0.8 % (0.0-1.0); EOS # 0.2 10^3/uL (0.0-0.5); EOS % 2.5 % (0.0-3.0); HEMATOCRIT 40.3 % (36.0-47.0); HEMOGLOBIN 13.5 g/dl (12.0-15.5); LYMPH # 1.6 10^3/uL (1.5-5.0); LYMPH % 26.6 % (24.0-44.0); MEAN CORPUSCULAR HEMOGLOBIN 28.4 pg (27.0-33.0); MEAN CORPUSCULAR HGB CONC 33.5 g/dl (32.0-36.5); MEAN CORPUSCULAR VOLUME 84.8 fl (80.0-96.0); MONO # 0.4 10^3/uL (0.0-0.8); NEUTROPHILS # 3.8 10^3/uL (1.5-8.5); NEUTROPHILS % 62.8 % (36.0-66.0); PLATELET COUNT, AUTOMATED 205 10^3/uL (150-450); RED BLOOD COUNT 4.75 10^6/uL (4.00-5.40); WHITE BLOOD COUNT 6.1 10^3/uL (4.0-10.0)
[2023-04-17 20:46] LABS: LIPASE 34 U/L (12-53)
[2023-04-17 20:48] LABS: ALBUMIN 3.9 G/DL (3.2-5.2); ALKALINE PHOSPHATASE 59 U/L (46-116); ALT/SGPT 28 U/L (7.0-40); AST/SGOT 30 U/L (<34); BILIRUBIN,DIRECT 0.2 MG/DL (<0.4); BILIRUBIN,TOTAL 0.5 MG/DL (0.3-1.2); BLOOD UREA NITROGEN 17 MG/DL (9-23); CALCIUM LEVEL 9.2 MG/DL (8.5-10.1); CARBON DIOXIDE LEVEL 31 MMOL/L (20-31); CHLORIDE LEVEL 106 MMOL/L (98-107); CREATININE FOR GFR 0.93 MG/DL (0.55-1.30); GLOMERULAR FILTRATION RATE > 60.0 (>58); GLUCOSE, FASTING 84 MG/DL (60-100); POTASSIUM SERUM 4.3 MMOL/L (3.5-5.1); SODIUM LEVEL 144 MMOL/L (136-145); TOTAL PROTEIN 6.9 G/DL (5.7-8.2)
[2023-04-17] MEDS ORDERED: ISOVUE-370 76% 100ML VIAL As Ordered ONE (21:48)
[2023-04-17] MEDS ORDERED: SUCR1TA PO (23:40)
[2023-04-17] MEDS ORDERED: LANS30CA PO (23:40)
[2023-04-17] MEDS ORDERED: SUCRALFATE SUSP 1GM/10ML UD PO ONE (23:40)
[2023-04-17 23:49] VITALS: BP 130/74; O2SAT 99
== END 2023-04-17 23:59 | disposition home or self-care (01) ==
LOC: M ED 18:37
DX: R10.13 Epigastric pain (principal); E03.9 Hypothyroidism, unspecified; Z88.2 Allergy status to sulfonamides; Z88.1 Allergy status to other antibiotic agents; Z91.048 Other nonmedicinal substance allergy status
CPT/HCPCS: 36415; 74177; 80048; 80076; 81001; 83690; 85025; 87086; 87507; 99284; Q9967

== ENCOUNTER 2024-02-28 09:46 | Emergency (ER) | payer OTHER ==
[~2024-02-28] VITALS: Ht 154.9 cm; Wt 82.1 kg
[~2024-02-28 09:46] MED LIST changes: +LANS30CA PO; +SUCR1TA PO
[2024-02-28 12:07] LABS: BASO % 0.9 % (0.0-1.0); EOS # 0.2 10^3/uL (0.0-0.5); EOS % 3.9 % (0.0-3.0); HEMATOCRIT 40.4 % (36.0-47.0); HEMOGLOBIN 13.4 g/dl (12.0-15.5); LYMPH # 1.2 10^3/uL (1.5-5.0); LYMPH % 27.6 % (24.0-44.0); MEAN CORPUSCULAR HEMOGLOBIN 28.5 pg (27.0-33.0); MEAN CORPUSCULAR HGB CONC 33.2 g/dl (32.0-36.5); MEAN CORPUSCULAR VOLUME 85.8 fl (80.0-96.0); MONO # 0.3 10^3/uL (0.0-0.8); MONO % 7.6 % (2.0-8.0); NEUTROPHILS # 2.6 10^3/uL (1.5-8.5); NEUTROPHILS % 59.5 % (36.0-66.0); PLATELET COUNT, AUTOMATED 205 10^3/uL (150-450); RED BLOOD COUNT 4.71 10^6/uL (4.00-5.40); WHITE BLOOD COUNT 4.3 10^3/uL (4.0-10.0)
[2024-02-28] MEDS: ONDANSETRON 4MG 2ML VIAL IV ONE (12:27)
[2024-02-28 12:37] LABS: LIPASE 41 U/L (12-53)
[2024-02-28 12:42] LABS: ALBUMIN 3.5 G/DL (3.2-5.2); ALKALINE PHOSPHATASE 70 U/L (46-116); ALT/SGPT 19 U/L (7.0-40); AST/SGOT 17 U/L (<34); BILIRUBIN,DIRECT < 0.1 MG/DL (<0.4); BILIRUBIN,TOTAL 0.3 MG/DL (0.3-1.2); TOTAL PROTEIN 6.6 G/DL (5.7-8.2)
[2024-02-28] MEDS ORDERED: ISOVUE-370 76% 100ML VIAL As Ordered ONE (12:46)
[2024-02-28] MEDS ORDERED: ONDA-282 PO (14:11)
[2024-02-28 14:25] VITALS: BP 112/70; TEMP 97.8; O2SAT 100
== END 2024-02-28 14:26 | disposition home or self-care (01) ==
LOC: M ED 09:46
DX: R10.32 Left lower quadrant pain (principal); R19.7 Diarrhea, unspecified; E05.90 Thyrotoxicosis, unspecified without thyrotoxic crisis or storm; F32.A Depression, unspecified; Z85.3 Personal history of malignant neoplasm of breast; Z88.2 Allergy status to sulfonamides; Z91.048 Other nonmedicinal substance allergy status; Z79.2 Long term (current) use of antibiotics; Z79.899 Other long term (current) drug therapy
CPT/HCPCS: 74177; 80047; 80076; 83690; 85025; 96374; 99284; J2405; Q9967

== ENCOUNTER 2024-04-12 13:03 | Emergency (ER) | payer OTHER ==
[~2024-04-12] VITALS: Ht 157.5 cm; Wt 80.7 kg
[~2024-04-12 13:03] MED LIST changes: +ONDA-282 PO
[2024-04-12 14:03] LABS: BASO % 0.6 % (0.0-1.0); EOS # 0.1 10^3/uL (0.0-0.5); EOS % 2.6 % (0.0-3.0); HEMATOCRIT 40.3 % (36.0-47.0); HEMOGLOBIN 13.6 g/dl (12.0-15.5); LYMPH # 1.1 10^3/uL (1.5-5.0); LYMPH % 21.6 % (24.0-44.0); MEAN CORPUSCULAR HEMOGLOBIN 28.5 pg (27.0-33.0); MEAN CORPUSCULAR HGB CONC 33.7 g/dl (32.0-36.5); MEAN CORPUSCULAR VOLUME 84.5 fl (80.0-96.0); MONO # 0.3 10^3/uL (0.0-0.8); MONO % 5.8 % (2.0-8.0); NEUTROPHILS # 3.5 10^3/uL (1.5-8.5); PLATELET COUNT, AUTOMATED 185 10^3/uL (150-450); RED BLOOD COUNT 4.77 10^6/uL (4.00-5.40)
[2024-04-12 14:28] LABS: BLOOD UREA NITROGEN 22 MG/DL (9-23); CALCIUM LEVEL 9.1 MG/DL (8.5-10.1); CARBON DIOXIDE LEVEL 28 MMOL/L (20-31); CHLORIDE LEVEL 108 MMOL/L (98-107); CREATININE FOR GFR 0.81 MG/DL (0.55-1.30); GLOMERULAR FILTRATION RATE > 60.0 (>58); GLUCOSE, FASTING 113 MG/DL (60-100); HCG, SERUM QUALITATIVE NEGATIVE (NEGATIVE); POTASSIUM SERUM 3.7 MMOL/L (3.5-5.1); SODIUM LEVEL 142 MMOL/L (136-145)
[2024-04-12] MEDS ORDERED: ISOVUE-370 76% 100ML VIAL As Ordered ONE (14:31)
[2024-04-12] MEDS ORDERED: NAPR-837 PO (15:36)
[2024-04-12 15:45] VITALS: BP 114/75; O2SAT 100
[2024-04-12 15:48] VITALS: TEMP 96.2
== END 2024-04-12 15:56 | disposition home or self-care (01) ==
LOC: M ED 13:03
DX: R07.89 Other chest pain (principal); F10.10 Alcohol abuse, uncomplicated; Z85.3 Personal history of malignant neoplasm of breast; Z88.2 Allergy status to sulfonamides; Z91.048 Other nonmedicinal substance allergy status; Z79.2 Long term (current) use of antibiotics; Z79.899 Other long term (current) drug therapy
CPT/HCPCS: 36415; 71275; 80048; 84703; 85025; 87486; 87581; 87633; 87798; 99284; Q9967